=== PATIENT | male | born 1935 | race Asian ===

== ENCOUNTER 2021-09-10 10:15 | Inpatient (IN) | payer BC, MEDICAID, SELFPAY ==
[~2021-09-10] VITALS: Ht 154.9 cm; Wt 56.4 kg
[2021-09-10 10:18] VITALS: BP 112/73
--- NOTE | 2021-09-10 10:52 | NUR ---
20G IV ESTABLISHED IN L AC AND BLOODWORK COLLECTED
--- NOTE | 2021-09-10 10:57 | NUR ---
BLOOD COLLECTED AND WALKED TO LAB. BLOOD HANDED TO SYSTEMS LEAD NIC
--- NOTE | 2021-09-10 11:03 | NUR ---
DR. MITTAL BEDSIDE EVALUATING PT
[2021-09-10] MEDS ORDERED: NACL 0.9% 1,000 ML IV ONE (11:15)
--- NOTE | 2021-09-10 11:24 | NUR ---
X-RAY AT PT BEDSIDE
[2021-09-10 11:31] LABS: ALBUMIN 2.8 g/dL (3.4-5.0); ANION GAP 14.2 (8-16); ASPARTATE AMINOTRANSFERASE 19 U/L (15-37); CARBON DIOXIDE 24.4 mmol/L (21-32); CHLORIDE 100 mmol/L (98-107); CREATININE 1.2 mg/dL (0.6-1.3); GLUCOSE 178 mg/dL (74-106); POTASSIUM 4.6 mmol/L (3.5-5.1); SODIUM SERUM 134 mmol/L (136-145); TOTAL BILIRUBIN 0.6 mg/dL (0.0-1.0); UREA NITROGEN, BLOOD 20 mg/dL (7-18)
[2021-09-10 11:46] LABS: BASOPHILS % (AUTO) 0.5 % (0.0-2.0); EOSINOPHILS # (AUTO) 0.1 K/uL (0-0.4); EOSINOPHILS % (AUTO) 1.3 % (0.0-4.0); HEMATOCRIT 42.1 % (36-52); LYMPHOCYTES # (AUTO) 1.2 K/uL (2.0-11.5); LYMPHOCYTES % (AUTO) 13.2 % (20.5-51.1); MEAN CORPUSCULAR HEMOGLOBIN 32 pg (27-31); MEAN CORPUSCULAR HGB CONC 33 g/dL (33-37); MONOCYTES # (AUTO) 0.7 K/uL (0.8-1.0); MONOCYTES % (AUTO) 7.7 % (1.7-9.3); NEUTROPHILS # (AUTO) 6.9 K/uL (1.8-7.7); NEUTROPHILS % (AUTO) 77.3 % (42.2-75.2); PLATELET COUNT (AUTO) 334 K/uL (140-450); RED BLOOD CELL COUNT(AUTO) 4.34 MIL/uL (4.20-6.10); RED CELL DISTRIBUTION WIDTH 12.7 % (11.6-13.7); WHITE BLOOD COUNT (AUTO) 8.9 K/uL (4.8-10.8)
[2021-09-10] MEDS ORDERED: AZITHROMYCIN 500 MG in DEXTROSE 5% 250 ML IV ONE (12:05)
--- NOTE | 2021-09-10 12:05 | NUR ---
LAB AT PT BEDSIDE
[2021-09-10] MEDS ORDERED: AZITHROMYCIN 500 MG INJ VIAL IV ONE (12:15)
[2021-09-10] MEDS ORDERED: cefTRIAXone 1,000 MG VIAL ONE (12:15)
--- NOTE | 2021-09-10 12:17 | NUR ---
pt taken to ct via geovani
[2021-09-10] MEDS ORDERED: DONE5TAB34 PO (13:15)
[2021-09-10] MEDS ORDERED: SIMV40TA1 PO (13:15)
[2021-09-10] MEDS ORDERED: FOS70 PO (13:15)
[2021-09-10] MEDS ORDERED: CLOP75TA55 PO (13:15)
[2021-09-10] MEDS ORDERED: ICOS0.5C PO (13:15)
[2021-09-10] MEDS ORDERED: METF1TAB1 PO (13:15)
[2021-09-10] MEDS ORDERED: CYCL0.052 OP (13:15)
[2021-09-10] MEDS ORDERED: LOSA100T1 PO (13:15)
--- NOTE | 2021-09-10 13:33 | NUR ---
DAKSHA REIS COLLECTED AND WALKED TO LAB
--- NOTE | 2021-09-10 13:47 | NUR ---
Patient appears to be resting comfortably in bed. Vital Signs within normal limits. Respirations even and unlabored.
[2021-09-10] MEDS ORDERED: ZOLPIDEM 5 MG TAB PO PRN (14:30)
[2021-09-10] MEDS ORDERED: ONDANSETRON 4 MG/2 ML VIAL IVP PRN (14:30)
[2021-09-10] MEDS ORDERED: MORPHINE SULFATE 2 MG/ML SYR IVP PRN (14:30)
[2021-09-10] MEDS ORDERED: LORazepam 2 MG/ML VIAL IM/IVP PRN (14:30)
[2021-09-10] MEDS ORDERED: DOCUSATE SODIUM 100 MG GELCAP PO PRN (14:30)
[2021-09-10] MEDS ORDERED: MAG SULF 2000 MG/WATER PREMIX 50 ML IV PRN (14:30)
[2021-09-10] MEDS ORDERED: ACETAMINOPHEN 325 MG TAB PO PRN (14:30)
[2021-09-10] MEDS ORDERED: SODIUM PHOS / POTASSIUM PHOS 1 PKT PDR PO PRN (14:30)
[2021-09-10] MEDS ORDERED: POTASSIUM CHLORIDE 10 MEQ TABER PO PRN (14:30)
--- NOTE | 2021-09-10 14:32 | NUR ---
Patient will be admitted to care of DR. GUILLEN. Admited to TELE. TELE HOLD IN ED BED 11. Belongings list completed.
--- NOTE | 2021-09-10 14:44 | NUR ---
# 14 FR Urinary catheter inserted utilizing sterile technique. Immediate return of YELLOW ml urine noted. Urine sample collected and sent to lab. Pt tolerated procedure WELL.
[2021-09-10 15:24] LABS: APPEARANCE,URINE CLEAR (CLEAR); BILIRUBIN,URINE NEGATIVE (NEGATIVE); BLOOD, URINE 3+ (NEGATIVE); COLOR,URINE YELLOW (YELLOW); LEUKOCYTE ESTERASE ,URINE NEGATIVE (NEGATIVE); NITRITE, URINE NEGATIVE (NEGATIVE); UGLUCOSE NEGATIVE (NEGATIVE)
[2021-09-10] MEDS: NACL 0.9% 1,000 ML IV SCH (15:24)
[2021-09-10 15:39] LABS: PROTHROMBIN TIME 10.8 secs (10.8-13.4)
--- NOTE | 2021-09-10 15:47 | NUR ---
PT VITAL SIGNS WITHIN NORMAL LIMITS.
[2021-09-10 16:22] LABS: RBC,URINE TOO NUMEROUS TO COUN /HPF (0-5); WBC,URINE NONE SEEN /HPF (0-5)
[2021-09-10 16:27] LABS: PHOSPHORUS 3.3 mg/dL (2.5-4.9); THYROID STIMULATING HORMONE 1.63 uIU/mL (0.34-3.74)
[2021-09-10] MEDS ORDERED: DEXTROSE 50% 50 ML SYR IVP PRN (18:00)
--- NOTE | 2021-09-10 18:02 | NUR ---
Patient appears to be resting comfortably in bed. Vital Signs within normal limits. Respirations even and unlabored.
--- NOTE | 2021-09-10 18:06 | NUR ---
XRAY AT BEDSIDE
[2021-09-10] MEDS ORDERED: AZITHROMYCIN 250 MG TAB PO SCH (18:30)
[2021-09-10] MEDS: TAMSULOSIN 0.4 MG CAP PO SCH (18:35)
--- NOTE | 2021-09-10 19:05 | NUR ---
PT PULLED OUT IV BEDSIDE
--- NOTE | 2021-09-10 19:19 | NUR ---
Pt report given to DUSTIN JONES. Transfer of care at this time.
--- NOTE | 2021-09-10 20:13 | NUR ---
MIKAL PAUL [phone] DAUGHTER IF ANY UPDATE ON PT CONDITION
[2021-09-10] MEDS: BLOOD GLUCOSE MONITORING 1 DEV DEV FS SCH (21:00)
--- NOTE | 2021-09-10 22:01 | NUR ---
Patient will be admitted to care of DR. GUILLEN. Admited to TELEMETRY. Will go to room 122A. Belongings list completed. Report to KRUNAL. PT BROUGHT TO ROOM AT 2140.
[2021-09-10 22:14] VITALS: BP 121/67
[2021-09-10] MEDS: DOCUSATE 100 MG/10 ML UDC PO SCH (22:21)
[2021-09-10] MEDS: DONEPEZIL 10 MG TAB PO SCH (22:21)
[2021-09-10] MEDS: SIMVASTATIN 40 MG TAB PO SCH (22:22)
[2021-09-11] VITALS: BP 126/79
[2021-09-11] MEDS: NACL 0.9% 1,000 ML IV SCH ×2 (00:38→10:33)
[2021-09-11 04:00] VITALS: BP 146/74
[2021-09-11] MEDS: BLOOD GLUCOSE MONITORING 1 DEV DEV FS SCH ×4 (05:51→20:08)
[2021-09-11 07:01] LABS: BASOPHILS % (AUTO) 0.3 % (0.0-2.0); EOSINOPHILS # (AUTO) 0.1 K/uL (0-0.4); EOSINOPHILS % (AUTO) 1.3 % (0.0-4.0); HEMATOCRIT 34.6 % (36-52); HEMOGLOBIN 11.9 g/dL (12.0-18.0); LYMPHOCYTES # (AUTO) 1.2 K/uL (2.0-11.5); LYMPHOCYTES % (AUTO) 16.7 % (20.5-51.1); MEAN CORPUSCULAR HEMOGLOBIN 33 pg (27-31); MEAN CORPUSCULAR HGB CONC 34 g/dL (33-37); MEAN CORPUSCULAR VOLUME 95.7 fL (80-94); MONOCYTES # (AUTO) 0.6 K/uL (0.8-1.0); MONOCYTES % (AUTO) 8.6 % (1.7-9.3); NEUTROPHILS # (AUTO) 5.4 K/uL (1.8-7.7); NEUTROPHILS % (AUTO) 73.1 % (42.2-75.2); PLATELET COUNT (AUTO) 306 K/uL (140-450); RED BLOOD CELL COUNT(AUTO) 3.62 MIL/uL (4.20-6.10); RED CELL DISTRIBUTION WIDTH 12.7 % (11.6-13.7); WHITE BLOOD COUNT (AUTO) 7.4 K/uL (4.8-10.8)
--- NOTE | 2021-09-11 07:15 | NUR ---
REPORT RCVD FROM OUT GOING NOC RN, ALL CARES ASSUMED. PATIENT STABLE IN NO ACUTE DISTRESS AND OR DISCOMFORT.
[2021-09-11 07:16] LABS: ALBUMIN 2.3 g/dL (3.4-5.0); ANION GAP 13.1 (8-16); ASPARTATE AMINOTRANSFERASE 15 U/L (15-37); CARBON DIOXIDE 25.2 mmol/L (21-32); CHLORIDE 108 mmol/L (98-107); GLUCOSE 126 mg/dL (74-106); MAGNESIUM 1.9 mg/dL (1.8-2.4); POTASSIUM 4.3 mmol/L (3.5-5.1); SODIUM SERUM 142 mmol/L (136-145); TOTAL BILIRUBIN 0.6 mg/dL (0.0-1.0); UREA NITROGEN, BLOOD 12 mg/dL (7-18)
--- NOTE | 2021-09-11 07:18 | NUR ---
PATIENT HAS BEEN SCREENED AND CATEGORIZED LOW NUTRITION RISK. PATIENT WILL BE SEEN WITHIN 7 DAYS OF ADMISSION. 09/18/21 TINO THURMAN MS, RDN
[2021-09-11 08:00] VITALS: BP 137/66
[2021-09-11] MEDS: TAMSULOSIN 0.4 MG CAP PO SCH (08:40)
[2021-09-11] MEDS: DOCUSATE 100 MG/10 ML UDC PO SCH ×2 (08:41→20:09)
[2021-09-11] MEDS: LOSARTAN 50 MG TAB PO SCH (08:41)
[2021-09-11] MEDS: CLOPIDOGREL 75 MG TAB PO SCH (08:41)
[2021-09-11] MEDS ORDERED: DONEPEZIL HCL 5 MG PO SCH (09:00)
[2021-09-11] MEDS: AZITHROMYCIN 250 MG TAB PO SCH (09:00)
--- NOTE | 2021-09-11 10:00 | NUR ---
DR. RAMOS MAKING ROUNDS, VERBAL BEDSIDE REPORT GIVEN.
[2021-09-11] MEDS ORDERED: CYCL0.052 OP (10:33)
[2021-09-11] MEDS ORDERED: VITA-16 PO (10:33)
--- NOTE | 2021-09-11 11:33 | NUR ---
BS 135, NO INSULIN NEEDED PER ORDER. PATIENT REMAINS NPO PENDING SWALLOW EVALUATION.
[2021-09-11 12:00] VITALS: BP 129/78
[2021-09-11] MEDS: POLYETHYLENE GLYCOL 17 GM/PKT PO SCH ×2 (14:31→20:09)
[2021-09-11 16:00] VITALS: BP 127/72
--- NOTE | 2021-09-11 16:09 | NUR ---
BS 112, NO INSULIN NEEDED PER ORDER. PATIENT REMAINS NPO PENDING SWALLOW EVALUATION.
[2021-09-11] MEDS: DEXT 5% / NACL 0.9% 500 ML IV SCH (16:41)
--- NOTE | 2021-09-11 18:46 | NUR ---
CLOSING NOTE: REPORT GIVEN TO INCOMING NOC NURSE, ALL CARES ENDORSED.
[2021-09-11 20:00] VITALS: BP 128/52
[2021-09-11] MEDS: DONEPEZIL 10 MG TAB PO SCH (20:09)
[2021-09-11] MEDS: SIMVASTATIN 40 MG TAB PO SCH (20:09)
[2021-09-12] VITALS: BP 122/58
[2021-09-12] MEDS: DEXT 5% / NACL 0.9% 500 ML IV SCH ×3 (02:40→22:57)
[2021-09-12 04:00] VITALS: BP 141/68
[2021-09-12 06:04] LABS: BASOPHILS % (AUTO) 0.4 % (0.0-2.0); EOSINOPHILS # (AUTO) 0.2 K/uL (0-0.4); HEMATOCRIT 34.8 % (36-52); HEMOGLOBIN 11.9 g/dL (12.0-18.0); LYMPHOCYTES # (AUTO) 1.1 K/uL (2.0-11.5); LYMPHOCYTES % (AUTO) 17.1 % (20.5-51.1); MEAN CORPUSCULAR HEMOGLOBIN 33 pg (27-31); MEAN CORPUSCULAR HGB CONC 34 g/dL (33-37); MEAN CORPUSCULAR VOLUME 95.1 fL (80-94); MONOCYTES # (AUTO) 0.6 K/uL (0.8-1.0); MONOCYTES % (AUTO) 9.2 % (1.7-9.3); NEUTROPHILS # (AUTO) 4.4 K/uL (1.8-7.7); NEUTROPHILS % (AUTO) 70.3 % (42.2-75.2); PLATELET COUNT (AUTO) 320 K/uL (140-450); RED BLOOD CELL COUNT(AUTO) 3.66 MIL/uL (4.20-6.10); RED CELL DISTRIBUTION WIDTH 12.6 % (11.6-13.7); WHITE BLOOD COUNT (AUTO) 6.3 K/uL (4.8-10.8)
[2021-09-12] MEDS: BLOOD GLUCOSE MONITORING 1 DEV DEV FS SCH ×4 (06:13→20:58)
[2021-09-12 06:17] LABS: ALBUMIN 2.3 g/dL (3.4-5.0); ANION GAP 11.4 (8-16); ASPARTATE AMINOTRANSFERASE 17 U/L (15-37); CARBON DIOXIDE 26.4 mmol/L (21-32); CHLORIDE 107 mmol/L (98-107); CREATININE 0.9 mg/dL (0.6-1.3); GLUCOSE 138 mg/dL (74-106); POTASSIUM 3.8 mmol/L (3.5-5.1); SODIUM SERUM 141 mmol/L (136-145); TOTAL BILIRUBIN 0.4 mg/dL (0.0-1.0); UREA NITROGEN, BLOOD 9 mg/dL (7-18)
[2021-09-12 08:17] VITALS: BP 132/58
[2021-09-12] MEDS: POLYETHYLENE GLYCOL 17 GM/PKT PO SCH ×2 (09:00→20:58)
[2021-09-12] MEDS: AZITHROMYCIN 250 MG TAB PO SCH (09:00)
[2021-09-12] MEDS: DOCUSATE 100 MG/10 ML UDC PO SCH ×2 (09:00→20:50)
[2021-09-12] MEDS: LOSARTAN 50 MG TAB PO SCH (09:00)
[2021-09-12] MEDS: TAMSULOSIN 0.4 MG CAP PO SCH (09:00)
[2021-09-12] MEDS: CLOPIDOGREL 75 MG TAB PO SCH (09:00)
--- NOTE | 2021-09-12 09:02 | NUR ---
PT IN STABLE CONDITION. INFORMED MD PT IS NPO AND RECEIVED ORDERS FOR BEDSIDE SWALLOW EVAL. PT ABLE TO TOLERATE WATER AND APPLE SAUCE. PLACED ORDERS FOR PUREED DIET. PT TOLERATED AM MEDICATIONS.
[2021-09-12] MEDS: INSULIN LISPRO SLIDING SCALE 100 UNITS/ML VIAL SUBQ PRN ×2 (11:37→16:28)
[2021-09-12 12:00] VITALS: BP 129/58
[2021-09-12 16:00] VITALS: BP 129/58
--- NOTE | 2021-09-12 19:15 | NUR ---
RECEIVED REPORT FROM MORNING SHIFT NURSE. PATIENT RESTING ON BED, BREATHING EVEN AND UNLABORED ON ROOM AIR. SAFETY MEASURES IMPLEMENTED WITH SIDE RAILS UP X2, CALL LIGHT WITHIN REACH. NO COMPLAINTS AT THIS TIME. WILL CONTINUE TO MONITOR PATIENT.
[2021-09-12 20:00] VITALS: BP 138/54
[2021-09-12] MEDS: SIMVASTATIN 40 MG TAB PO SCH (20:50)
[2021-09-12] MEDS: DONEPEZIL 10 MG TAB PO SCH (20:57)
[2021-09-13] VITALS: BP 141/56
--- NOTE | 2021-09-13 | NUR ---
PATIENT RESTING ON BED. VSS. NO UNTOWARD S/SX OBSERVED. WILL CONTINUE TO MONITOR PATIENT.
[2021-09-13 04:00] VITALS: BP 150/78
--- NOTE | 2021-09-13 05:30 | NUR ---
PATIENT HAD A BM, MORNING CARE AND PERICARE RENDERED. NO COMPLAINTS AT THIS TIME. BED LOCKED AT LOWEST WITH SIDE RAILS UP X 2 AND CALL LIGHT WITHIN REACH. WILL CONTINUE TO MONITOR PATIENT.
[2021-09-13 05:59] LABS: ALBUMIN 2.3 g/dL (3.4-5.0); ANION GAP 9.7 (8-16); ASPARTATE AMINOTRANSFERASE 23 U/L (15-37); CARBON DIOXIDE 26.9 mmol/L (21-32); CHLORIDE 107 mmol/L (98-107); CREATININE 0.9 mg/dL (0.6-1.3); GLUCOSE 141 mg/dL (74-106); MAGNESIUM 2.1 mg/dL (1.8-2.4); POTASSIUM 3.6 mmol/L (3.5-5.1); SODIUM SERUM 140 mmol/L (136-145); TOTAL BILIRUBIN 0.3 mg/dL (0.0-1.0); UREA NITROGEN, BLOOD 7 mg/dL (7-18)
[2021-09-13 06:09] LABS: BASOPHILS % (AUTO) 0.5 % (0.0-2.0); EOSINOPHILS # (AUTO) 0.2 K/uL (0-0.4); EOSINOPHILS % (AUTO) 2.4 % (0.0-4.0); HEMATOCRIT 34.8 % (36-52); HEMOGLOBIN 11.9 g/dL (12.0-18.0); LYMPHOCYTES # (AUTO) 1.4 K/uL (2.0-11.5); LYMPHOCYTES % (AUTO) 18.3 % (20.5-51.1); MEAN CORPUSCULAR HEMOGLOBIN 33 pg (27-31); MEAN CORPUSCULAR HGB CONC 34 g/dL (33-37); MEAN CORPUSCULAR VOLUME 95.6 fL (80-94); MONOCYTES # (AUTO) 0.6 K/uL (0.8-1.0); MONOCYTES % (AUTO) 8.4 % (1.7-9.3); NEUTROPHILS # (AUTO) 5.3 K/uL (1.8-7.7); NEUTROPHILS % (AUTO) 70.4 % (42.2-75.2); PLATELET COUNT (AUTO) 357 K/uL (140-450); RED BLOOD CELL COUNT(AUTO) 3.64 MIL/uL (4.20-6.10); RED CELL DISTRIBUTION WIDTH 12.7 % (11.6-13.7); WHITE BLOOD COUNT (AUTO) 7.6 K/uL (4.8-10.8)
[2021-09-13] MEDS: BLOOD GLUCOSE MONITORING 1 DEV DEV FS SCH ×4 (06:48→20:31)
--- NOTE | 2021-09-13 07:19 | NUR ---
REPORT GIVEN TO MORNING NURSE. PATIENT ASLEEP ON BED, STABLE.
[2021-09-13 08:04] VITALS: BP 142/58
--- NOTE | 2021-09-13 08:47 | NUR ---
PT. WITH LOW ALEX SCALE AT MODERATE TO HIGH RISK, CONTINUE TO FOLLOW PRESSURE INJURY PREVENTION INTERVENTIONS. -POSITIONING: TURN AND REPOSITION PATIENT Q 2H OR SOONER USE PILLOWS TO KEEP BONY PROMINENCES FROM DIRECT CONTACT WITH SURFACES USE REPOSITIONING WEDGES TO PROVIDE 30-DEGREE ANGLE FOR SIDE LYING POSITIONS OFFLOADING OR FOAM DRESSING TO ALL TUBING TO PREVENT MEDICAL DEVICES RELATED PRESSURE INJURY -RE-EVALUATING AND MANAGING INCONTINENCE MONITOR SKIN CONDITION DURING POSITION CHANGE DO NOT MASSAGE REDNESS, BONY PROMINENCES, DO NOT USE DONUT-TYPE DEVICES FREQUENT KIRSTIN-CARE AND PROVIDE BARRIER CREAMS PRN IF SOILING MOISTURE CONTROL BY OFFER BED STEPHENSON/URINAL /ABSORBENT PAD TO WICK AND HOLD MOISTURE. KEEP SKIN DRY AND PROTECT FROM FRICTION -MANAGE FRICTION/SHEAR/MOBILITY KEEP HOB AT THE LOWEST LEVEL OF ELEVATION NO MORE THAN 30 DEGREE UNLESS OTHERWISE CONTRAINDICATED USE LIFT SHEET OR TRANSFER DEVICE TO MOVE PATIENT AND PREVENT LATERAL SHEER. PROTECT HEELS, ELBOWS BONY PROMINENCES WITH SKIN BERRIES OR FOAM DRESSING IF EXPOSED TO FRICTION OFFLOAD BILATERAL HEELS BY PLACING PILLOWS UNDER CALVES AT ALL TIMES, UNLESS OTHERWISE CONTRAINDICATED -PRESSURE REDISTRIBUTION SURFACE THERAPY -NUTRITION: PLEASE FOLLOW RD RECOMMENDATIONS AND OFFER NUTRITION SUPPLEMENTS IF ORDERED. PLEASE CONTACT WOUND CARE NURSE FOR ANY QUESTION AND CHANGE OF WOUND CONDITION.
[2021-09-13] MEDS: TAMSULOSIN 0.4 MG CAP PO SCH (08:56)
[2021-09-13] MEDS: DEXT 5% / NACL 0.9% 500 ML IV SCH (08:56)
[2021-09-13] MEDS: AZITHROMYCIN 250 MG TAB PO SCH (08:57)
[2021-09-13] MEDS: POLYETHYLENE GLYCOL 17 GM/PKT PO SCH ×2 (08:57→20:35)
[2021-09-13] MEDS: LOSARTAN 50 MG TAB PO SCH (08:57)
[2021-09-13] MEDS: CLOPIDOGREL 75 MG TAB PO SCH (08:57)
[2021-09-13] MEDS: DOCUSATE 100 MG/10 ML UDC PO SCH ×2 (08:57→20:35)
[2021-09-13] MEDS ORDERED: ALBUTEROL SULFATE/IPRATROPIU 3 ML SOL IH PRN (09:05)
--- NOTE | 2021-09-13 09:58 | NUR ---
PT IN STABLE CONDITION, VSS, NAD NOTED. PT TOLERATED AM MEDICATIONS. PT PENDING SWALLOW EVAL AND U/S OF CHEST DUE TO PLEURAL EFFUSION. SAFETY MEASURES IN PLACE.
[2021-09-13] MEDS: INSULIN LISPRO SLIDING SCALE 100 UNITS/ML VIAL SUBQ PRN ×2 (11:27→20:34)
[2021-09-13] MEDS: ALBUTEROL SULFATE/IPRATROPIU 3 ML SOL IH SCH ×2 (11:45→20:30)
[2021-09-13 12:00] VITALS: BP 146/64
--- NOTE | 2021-09-13 13:39 | NUR ---
DC PLANNING: THE PATIENT ADMITTED THROUGH THE ER FROM HOME WITH C/O CHEST PAIN, DECREASED ABILITY TO TRANSFER AND STIFFNESS. CXR SHOWS LLL CONSOLIDATION AND TRACE PLEURAL EFFUSION, ABNORMAL EKG, BNP 131. CM SPOKE WITH THE PATIENTS DAUGHTER MIKAL AT BEDSIDE AND CONFIRMED THE PATIENTS ADDRESS AND PHONE NUMBER. HE LIVES WITH HIS DAUGHTER, SPOUSE AND SON IN [place] IN A SINGLE STORY HOUSE. HE IS NORMALLY WC BOUND BUT IS ABLE TO STAND AND PIVOT BUT HAS BEEN WEAKER LATELY AND UNABLE TO DO THIS. HE IS TOTAL CARE WITH ADL'S BUT IS ABLE TO FEED HIMSELF. HIS PO INTAKE HAS ALSO DECREASED RECENTLY AND HIS DAUGHTER HAS BEEN SPEAKING WITH THE [facility] LIAISON AT [facility]. THE FAMILY WOULD LIKE HIM PLACED AT [facility] AND HE HAS BEEN ACCEPTED TO ROOM 38C WITH DR DOVE TO FOLLOW. CM NOTIFIED THE PATIENTS DAUGHTER OF HIS ACCEPTANCE TO [facility]. PATIENT TO DC TO [facility] WHEN CLINICALLY STABLE, DOLORES WILL FOLLOW. Addendum: 09/13/21 at 1345 by Aracelis Kelley CM Amended: Links added. Addendum: 09/14/21 at 1025 by Aracelis Kelley CM DC PLANNING: CM SPOKE WITH DOLORES BULLOCK AT [facility], AUTH GIVEN TO [facility] FOR PLACEMENT WHEN PATIENT IS STABLE FOR DISCHARGE. CM WILL FOLLOW. Addendum: 09/14/21 at 1503 by Aracelis Kelley CM DC PLANNING: PATIENT TRANSFERRED TO ICU FOR EPISODES OF A FIB WITH RVR, STARTED ON AMIODARONE GTT, PATIENT CONVERTED TO SR, CARDIOLOGY ROUNDED AND CHANGED AMIODARONE FROM IV TO PO, PATIENT ALSO STARTED ON ELIQIS, IS TO CONTINUE STATINS, WILL ALSO HAVE AN ECHO. WILL BE DOWNGRADED TO TELEMETRY AND WILL DC TO [facility] WHEN CLINICALLY STABLE. CM WILL FOLLOW. Addendum: 09/15/21 at 1107 by Aracelis Kelley CM DC PLANNING: PATIENT TO DC TO [facility] TODAY, NUMBER TO CALL REPORT IS [phone], ROOM 38C, DR DOVE TO FOLLOW. PATIENT TO TRANSPORT WITH TELE MONITORING WITH [facility] ([phone]), CM IS WAITING FOR AUTHORIZATION FROM KOBE AT [facility] TO ARRANGE, HARD COPY WILL ALSO BE FAXED TO PROVIDE TO [facility]. PATIENT WILL HAVE A MIDLINE PLACED FIRST TO CONTINUE IV ABX AT [facility]. CM WILL FOLLOW. Addendum: 09/15/21 at 1112 by Aracelis Kelley CM DC PLANNING: DOLORES SPOKE WITH THE PATIENTS DAUGHTER MIKAL TO LET HER KNOW THAT HER FATHER WILL DC TO [facility] TODAY. ENDORSED THAT DC IS PENDING MIDLIFE PLACEMENT AND THAT HE WILL TRANSPORT VIA AMBULANCE WITH MONITORING. MIKAL IS IN AGREEMENT WITH THE DC PLAN, CM WILL FOLLOW. Addendum: 09/15/21 at 1138 by Aracelis Kelley CM DC PLANNING: PATIENT PLACED ON WILL CALL WITH [facility] ([phone]) S LEVEL OF CARE, UNABLE TO TRANSPORT WITH MONITORING HE WILL NOT CONTINUE MONITORING AT [facility]. CM WILL FOLLOW.
--- NOTE | 2021-09-13 13:39 | NUR ---
09/13/21 RD INITIAL ASSESSMENT COMPLETED PLEASE REFER TO NUTRITION ASSESSMENT UNDER CARE ACTIVITY FOR ESTIMATED NUTRITIONAL NEEDS. 1. WHEN/IF MEDICALLY APPROPRIATE TO RESUME ORAL INTAKE, RECOMMEND CCHO 60 GM DIET WITH TEXTURE MODIFICATION PER SPEECH THERAPIST 2. IF PT FAILS SWALLOW EVAL AND REQUIRES NUTRITION SUPPORT, RECOMMEND GLUCERNA 1.2 WITH A GOAL RATE OF 55 ML/HR OR PER MD 3. RD TO FOLLOW-UP 2-3 DAYS, HIGH RISK NATALIE BROWN RD
--- NOTE | 2021-09-13 15:39 | NUR ---
PT SEEN BY MD KEON AWARE OF RECOMMENDED DIET. ORDER PLACED.
[2021-09-13 16:00] VITALS: BP 139/62
--- NOTE | 2021-09-13 18:57 | NUR ---
PT IN STABLE CONDITION, VSS, NAD NOTED. PT TOLERATING DIET. SAFETY MEASURES IN PLACE. WILL ENDORSE TO GEOLOGICAL ENGINEER RN.
--- NOTE | 2021-09-13 19:11 | NUR ---
ENDORSED CARE TO EVP MANAGING DIRECTOR RN.
--- NOTE | 2021-09-13 19:20 | NUR ---
RECEIVED REPORT FROM MORNING NURSE. PATIENT RESTING ON BED. IV SITE GOT PULLED OUT. RE -INSERTED A NEW IV ON LEFT WRIST G22, SECURED AND FLUSHES WELL. SAFETY MEASURES IMPLEMENTED, CALL LIGHT WITHIN REACH. WILL CONTINUE TO MONITOR PATIENT
[2021-09-13 20:00] VITALS: BP 132/62
--- NOTE | 2021-09-13 20:30 | NUR ---
PT LAYING IN BED HOB ELEVATED, BS CLEAR AT APICES DIMINISHED AT BASES, ADMINISTERED HHN TX VIA SVN W/MASK, PT TOLERATED WELL. NO ADVERSE EFFECTS TO TX AND NO SIGNS OF RESPIRATORY DISTRESS NOTED AT THIS TIME. PT IS CURRENTLY SATING 97% ON RA WILL CONTINUE TO MONITOR.
[2021-09-13] MEDS: SIMVASTATIN 40 MG TAB PO SCH (20:36)
[2021-09-13] MEDS: DONEPEZIL 10 MG TAB PO SCH (20:36)
[2021-09-13] MEDS: guaiFENesin 600 MG TABER PO SCH (20:55)
--- NOTE | 2021-09-13 21:50 | NUR ---
REPORTED TO ROOM TO ASSES PT. HE IS AWAKE AND COMMUNICATING WITH DAUGHTER OVER HIS CELL PHONE THAT HE CANNOT BREATH. PLACED THE PT ON 4LPM NC SATING 93% WITH NO IMPROVEMENT IN CONDITION. HE BEGAN TO ACT CONFUSED AND APPARENT CHANGE IN CONDITION NOTED , RESPIRATIONS BECAME LABORED, HE BECAME TACHYPNEIC AND TACHYCARDIC. ABG WAS DONE @ 21:21 TO ASSESS OXYGENATION AND VENTILATION STATUS. RESULTS REVEALED: PH: 7.429 PCO2: 33.9 PO2: 69.2 HCO3: 21.9 BE: -1.7. INCREASED NC O2 TO 8LPM. WILL CONTINUE TO MONITOR.
--- NOTE | 2021-09-13 21:54 | NUR ---
2047: PATIENT JUST HAD IS BREATHING TREATMENT, O2 SAT AT 94%. PATIENT COMPLAINING OF NOT BEING ABLE TO BREATHE, MOANING AND HOLDING HIS CHEST. REFERRED TO RT FOR ADDITIONAL ASSESSMENT. WELT EDGE ROUNDER MADE AWARE. PATIENT PLACED ON OXYGEN OF 2 L/NC AND ABG DONE BY RT. PATIENT STILL COMPLAINING. DAUGHTER UPDATED OF PATIENT CONDITION. ABG RESULT CAME OUT AND TURNS OUT NORMAL. RT ADJUSTED OXYGEN TO 8L/NC. PATIENT GIVEN ATIVAN FOR ANXIETY. DAUGHTER UPDATED.
--- NOTE | 2021-09-13 22:05 | NUR ---
DR GRIFFITH MADE AWARE OF PATIENT CONDITION. LABS, CTA CHEST AND EKG ORDERS RECEIVED.TRANSFER TO ICU ORDER RECEIVED. HONEY EXTRACTOR AWARE, PATIENT WILL BE GOING TO ICU BED 5. CALLED DAUGHTER AND GOT A TELEPHONE CONSENT FOR CTA CHEST, UPDATED HER OF PATIENT'S TRANSFER. INSERTED NEW IV SITE ON LEF G 20 FOR CONTRAST ACCESS.
[2021-09-13] MEDS ORDERED: AMIODARONE 150 MG in DEXTROSE 5% 100 ML IV SCH (22:40)
[2021-09-13] MEDS ORDERED: AMIODARONE 450 MG in DEXTROSE 5% 250 ML IV SCH (22:40)
[2021-09-13] MEDS ORDERED: AMIODARONE 150 MG/3 ML VIAL IV ONE (23:11)
--- NOTE | 2021-09-13 23:20 | NUR ---
PATIENT ACCOMPANIED TO RADIOLOGY DEPT FOR CTA CHEST. PATIENT STABLE ON TRANSFER, CONNECTED TO HEART MONITOR. PATIENT TRANSFERRED TO ICU BED 5 AFTER CTA. REPORT GIVEN TO DUSTIN JACOBSON. PATIENT STABLE UPON TRANSFER.
--- NOTE | 2021-09-13 23:20 | NUR ---
REPORT RECEIVED FROM IRENE CHAN. PATIENT TRANSPORTED TO UNIT VIA GURNEY. PATIENT APPEARS TO BE SHORT OF BREATH WITH O2 SATURATION AT 96. CURRENTLY SINUS TACHYCARDIA ON MONITOR WITH HR AT 133 BPM. AMIODARONE BOLUS LOADING DOSE STARTED PER PROTOCOL. WILL CONTINUE TO MONITOR.
--- NOTE | 2021-09-13 23:31 | NUR ---
AMIODARONE MAINTENANCE DOSE BEGAN. PATIENT HR [address] ON MONITOR. WILL CONTINUE TO MONITOR.
[2021-09-13] MEDS ORDERED: AMIODARONE 450 MG/9 ML VIAL IV ONE (23:37)
[2021-09-14] VITALS (11 sets, daily range): BP systolic 96–152; BP diastolic 53–85
--- NOTE | 2021-09-14 04:00 | NUR ---
PERICARE PROVIDED. PATIENT REPOSITIONED. WILL CONTINUE TO MONITOR.
--- NOTE | 2021-09-14 04:24 | NUR ---
PATIENT LYING IN BED GRIMACING AND APPEARS TO BE IN PAIN. PRN MORPHINE PROVIDED.
--- NOTE | 2021-09-14 05:12 | NUR ---
AMIODARONE DRIP TITRATED TO 0.5 MG/MIN PER PROTOCOL. PT BP 117/56 HR72 SPO2 99 RR 16. WILL CONTINUE TO MONITOR.
[2021-09-14] MEDS ORDERED: AMIODARONE 450 MG/9 ML VIAL IV ONE (05:32)
[2021-09-14 06:15] LABS: ALBUMIN 2.5 g/dL (3.4-5.0); ANION GAP 10.4 (8-16); ASPARTATE AMINOTRANSFERASE 29 U/L (15-37); CARBON DIOXIDE 27.3 mmol/L (21-32); CHLORIDE 103 mmol/L (98-107); GLUCOSE 256 mg/dL (74-106); MAGNESIUM 1.9 mg/dL (1.8-2.4); POTASSIUM 3.7 mmol/L (3.5-5.1); SODIUM SERUM 137 mmol/L (136-145); TOTAL BILIRUBIN 0.9 mg/dL (0.0-1.0); UREA NITROGEN, BLOOD 10 mg/dL (7-18)
[2021-09-14 06:57] LABS: BASOPHILS % (AUTO) 0.1 % (0.0-2.0); HEMATOCRIT 38.7 % (36-52); HEMOGLOBIN 12.7 g/dL (12.0-18.0); LYMPHOCYTES # (AUTO) 0.5 K/uL (2.0-11.5); MEAN CORPUSCULAR HEMOGLOBIN 32 pg (27-31); MEAN CORPUSCULAR HGB CONC 33 g/dL (33-37); MEAN CORPUSCULAR VOLUME 96.7 fL (80-94); MONOCYTES # (AUTO) 0.5 K/uL (0.8-1.0); MONOCYTES % (AUTO) 3.3 % (1.7-9.3); NEUTROPHILS # (AUTO) 15.1 K/uL (1.8-7.7); NEUTROPHILS % (AUTO) 93.6 % (42.2-75.2); PLATELET COUNT (AUTO) 391 K/uL (140-450); RED CELL DISTRIBUTION WIDTH 12.8 % (11.6-13.7); WHITE BLOOD COUNT (AUTO) 16.1 K/uL (4.8-10.8)
--- NOTE | 2021-09-14 07:19 | NUR ---
REPORT ENDORSED TO DUSTIN PEREZ FOR CONTINUITY OF CARE.
--- NOTE | 2021-09-14 07:20 | NUR ---
RECEIVED REPORT FROM BANK APPRAISER NURSE. PT IS RESTING IN BED AND IN NO SIGN OF DISTRESS. PT IS AWAKE AND HAS A HISTORY OF DEMENTIA. PT HAS A LEFT FA 22 G IV RUNNING AMIODARONE AT 0.5MG/MIN AND A LEFT WRIST 20 G IV WITH A SALINE LOCK. PT IS ON NC RUNNING 2 L/MIN. PT IS ON MECHANICAL SOFT DIET AND HAS BEEN CONSTIPATED FOR SEVERAL DAYS. SKIN IS INTACT AND DRY. ALL SAFETY PRECAUTIONS ARE IN PLACE. WILL CONTINUE TO MONITOR.
[2021-09-14] MEDS: ALBUTEROL SULFATE/IPRATROPIU 3 ML SOL IH SCH ×3 (07:21→18:00)
[2021-09-14] MEDS: BLOOD GLUCOSE MONITORING 1 DEV DEV FS SCH ×4 (08:30→22:00)
[2021-09-14] MEDS: DOCUSATE 100 MG/10 ML UDC PO SCH ×2 (08:53→22:19)
[2021-09-14] MEDS: TAMSULOSIN 0.4 MG CAP PO SCH (08:53)
[2021-09-14] MEDS: LOSARTAN 50 MG TAB PO SCH (08:54)
[2021-09-14] MEDS: guaiFENesin 600 MG TABER PO SCH ×2 (08:54→22:22)
[2021-09-14] MEDS: CLOPIDOGREL 75 MG TAB PO SCH (08:54)
[2021-09-14] MEDS: POLYETHYLENE GLYCOL 17 GM/PKT PO SCH ×2 (08:54→22:35)
[2021-09-14] MEDS: INSULIN LISPRO SLIDING SCALE 100 UNITS/ML VIAL SUBQ PRN ×4 (08:54→22:17)
[2021-09-14] MEDS ORDERED: FUROSEMIDE 40 MG/4 ML VIAL IVP SCH ×2 (09:00→09:15)
--- NOTE | 2021-09-14 10:00 | NUR ---
DR. GRIFFITH AT BEDSIDE ASSESSING PT AND TALKING TO FAMILY.
[2021-09-14] MEDS ORDERED: DICYCLOMINE HCL LIQUID 10 MG/5 ML UDC PO ONE (10:15)
[2021-09-14] MEDS: FUROSEMIDE 40 MG/4 ML VIAL IVP SCH (10:20)
--- NOTE | 2021-09-14 10:30 | NUR ---
PER DR. GRIFFITH ORDERS, PT IS TO RECEIVE LASIX DAILY. PT ALREADY RECEIVED LASIX AND WILL CONTINUE TOMORROW WITH DAILY DOSE.
[2021-09-14] MEDS ORDERED: ALUMINUM HYD/MAG/SIMETHICONE 30 ML UDC PO SCH (11:00)
[2021-09-14] MEDS ORDERED: DICYCLOMINE HCL LIQUID 10 MG/5 ML UDC PO SCH (11:00)
--- NOTE | 2021-09-14 11:00 | NUR ---
PT IS SLEEPING AND IN NO SIGN OF DISTRESS. WILL CONTINUE TO MONITOR.
--- NOTE | 2021-09-14 11:03 | NUR ---
US AT BEDSIDE.
[2021-09-14] MEDS ORDERED: LIDOCAINE 5% 1 EA PATCH TP SCH (11:30)
--- NOTE | 2021-09-14 11:50 | NUR ---
LABORATORY AT BEDSIDE.
--- NOTE | 2021-09-14 11:55 | NUR ---
RADIOLOGY AT BEDSIDE.
--- NOTE | 2021-09-14 12:00 | NUR ---
LIDOCAINE PATCH NOT ADMINISTERED PER RESIDENT REMA DUE TO NO SPECIFIED LOCATION. CALLED DR. GRIFFITH VIA PHONE FOR ORDER CLARIFICATION AND NO CALL BACK AT THIS MOMENT. WILL CALL BACK AGAIN.
[2021-09-14 12:38] LABS: AMYLASE 30 U/L (25-115); LIPASE 88 U/L (73-393)
--- NOTE | 2021-09-14 12:50 | NUR ---
PT STARTED TO COMPLAIN ABOUT ABDOMINAL PAIN AND PER DR. GRIFFITH ORDERS MEDICATION WAS ADMINISTERED. WILL CONTINUE TO ASSESS.
--- NOTE | 2021-09-14 12:58 | NUR ---
ECO ON BEDSIDE.
--- NOTE | 2021-09-14 14:40 | NUR ---
DR. WILSON AT BEDSIDE AND ASSESSING PT.
[2021-09-14] MEDS: AMIODARONE 200 MG TAB PO SCH ×2 (15:30→22:23)
--- NOTE | 2021-09-14 15:30 | NUR ---
DR. RAMOS AT BEDSIDE AND ASSESSING PT.
--- NOTE | 2021-09-14 15:45 | NUR ---
PER DR. GRIFFITH ORDERS VIA PHONE, PLACE CONSULT ODER FOR DR. MUSHTAQ BRANCH NEPHRO, PLACE LIDOCAINE PATCH IF PT HAS ABDOMINAL PAIN, AND PLACE ORDER FOR TELE. WILL CONTINUE TO MONITOR.
[2021-09-14] MEDS ORDERED: LIDOCAINE 5% 1 EA PATCH TP PRN (17:35)
--- NOTE | 2021-09-14 19:26 | NUR ---
ENDORSED CARE TO HEAT TREAT INSPECTOR NURSE FOR CONTINUITY OF CARE.
--- NOTE | 2021-09-14 19:30 | NUR ---
RECEIVED PATIENT ON BED; AWAKE, ALERT, FOLLOWS COMMANDS. BREATHING EVEN AND UNLABORED ON 2 LITERS /. CARDIACSCOPE SHOWS ON SINUS RHYTHM HR 79/MIN, NO ARRHYTHMIAS SEEN. ABDOMEN IS SOFT; NON TENDER,ACTIVE BOWEL SOUNDS.IVF IN IN PROGRESS IS NORMAL SALINE KVO VIA G22 IV CANNULA ON LFA; INTACT.
--- NOTE | 2021-09-14 19:45 | NUR ---
HAD BM TO MODERATE AMOUNT OF SOFT,LOOSE YELLOW STOOL AND MIXED WITH HIS URINE; KEPT CLEAN, DRY AND COMFORTABLE. OFFERED PT TO INSERT A CONDOM CATH BUT HE REFUSED.
--- NOTE | 2021-09-14 20:10 | NUR ---
TRANSFERRED TO TELE ROOM 108B PER BED IN FAIR CONDITION; ENDORSED TO NURSE SRINATH.
--- NOTE | 2021-09-14 20:30 | NUR ---
PATIENT'S DAUGHTER MIKAL WAS INFORMED BY TELEPHONE OF PATIENT'S TRANSFER TO TELEMETRY UNIT.
--- NOTE | 2021-09-14 20:40 | NUR ---
Pt transferred from ICU to room 108-B, awake, no s/s of acute distress, on 02 2 L/min via nc. NSR on telemetry,V?s wnl for pt at this time. Pt denies CP . Continue to monitor and meet needs.
[2021-09-14] MEDS: INSULIN LANTUS 100 UNITS/ML 10 ML VIAL SUBQ SCH (22:15)
[2021-09-14] MEDS: SIMVASTATIN 40 MG TAB PO SCH (22:21)
[2021-09-14] MEDS: DONEPEZIL 10 MG TAB PO SCH (22:23)
[2021-09-14] MEDS: PIPERACILLIN/TAZOBACTAM 3.375 GM in DEXTROSE 5% 50 ML IV SCH (22:25)
[2021-09-14] MEDS: APIXABAN 2.5 MG TAB PO SCH (22:30)
[2021-09-15] VITALS (9 sets, daily range): BP systolic 99–110; BP diastolic 52–62
[2021-09-15] MEDS: PIPERACILLIN/TAZOBACTAM 3.375 GM in DEXTROSE 5% 50 ML IV SCH ×3 (05:15→20:43)
--- NOTE | 2021-09-15 05:59 | NUR ---
Pt a/o x2 , calm and cooperative. Denies CP, no SOB/congestion noted during this shift, on 02 2 L/min via nc. Atb therapy admin as ordered. no s/s of a/r . afebrile. cont. to monitor.
[2021-09-15 06:10] LABS: BASOPHILS % (AUTO) 0.1 % (0.0-2.0); EOSINOPHILS % (AUTO) 0.3 % (0.0-4.0); HEMATOCRIT 33.8 % (36-52); HEMOGLOBIN 11.5 g/dL (12.0-18.0); LYMPHOCYTES % (AUTO) 6.7 % (20.5-51.1); MEAN CORPUSCULAR HEMOGLOBIN 32 pg (27-31); MEAN CORPUSCULAR HGB CONC 34 g/dL (33-37); MEAN CORPUSCULAR VOLUME 94.1 fL (80-94); MONOCYTES # (AUTO) 0.8 K/uL (0.8-1.0); MONOCYTES % (AUTO) 5.4 % (1.7-9.3); NEUTROPHILS # (AUTO) 13.1 K/uL (1.8-7.7); NEUTROPHILS % (AUTO) 87.5 % (42.2-75.2); PLATELET COUNT (AUTO) 371 K/uL (140-450); RED BLOOD CELL COUNT(AUTO) 3.59 MIL/uL (4.20-6.10); RED CELL DISTRIBUTION WIDTH 12.9 % (11.6-13.7)
[2021-09-15] MEDS: ALBUTEROL SULFATE/IPRATROPIU 3 ML SOL IH SCH ×3 (07:04→19:21)
[2021-09-15] MEDS: BLOOD GLUCOSE MONITORING 1 DEV DEV FS SCH ×4 (07:30→20:51)
[2021-09-15 07:34] LABS: ALBUMIN 2.3 g/dL (3.4-5.0); ANION GAP 11.6 (8-16); ASPARTATE AMINOTRANSFERASE 21 U/L (15-37); CHLORIDE 104 mmol/L (98-107); CREATININE 1.1 mg/dL (0.6-1.3); MAGNESIUM 2.2 mg/dL (1.8-2.4); POTASSIUM 3.6 mmol/L (3.5-5.1); SODIUM SERUM 139 mmol/L (136-145); TOTAL BILIRUBIN 0.4 mg/dL (0.0-1.0); UREA NITROGEN, BLOOD 16 mg/dL (7-18)
[2021-09-15 07:44] LABS: GLUCOSE 124 mg/dL (74-106)
[2021-09-15] MEDS: AMIODARONE 200 MG TAB PO SCH ×2 (08:50→20:44)
[2021-09-15] MEDS: POLYETHYLENE GLYCOL 17 GM/PKT PO SCH ×2 (08:51→20:43)
[2021-09-15] MEDS: guaiFENesin 600 MG TABER PO SCH ×2 (08:51→20:43)
[2021-09-15] MEDS: TAMSULOSIN 0.4 MG CAP PO SCH (08:51)
[2021-09-15] MEDS: DOCUSATE 100 MG/10 ML UDC PO SCH ×2 (08:51→20:43)
[2021-09-15] MEDS: APIXABAN 2.5 MG TAB PO SCH ×2 (08:52→20:50)
[2021-09-15] MEDS: INSULIN LANTUS 100 UNITS/ML 10 ML VIAL SUBQ SCH (08:54)
[2021-09-15] MEDS: FUROSEMIDE 40 MG/4 ML VIAL IVP SCH (08:57)
[2021-09-15] MEDS: LOSARTAN 50 MG TAB PO SCH (09:00)
[2021-09-15] MEDS ORDERED: TAMS0.4C96 PO (10:44)
[2021-09-15] MEDS ORDERED: AMIO200T10 PO ×2 (10:44→10:48)
[2021-09-15] MEDS ORDERED: ZOS3.375PM IV (10:44)
[2021-09-15] MEDS ORDERED: LANTUS SUBQ (10:44)
[2021-09-15] MEDS ORDERED: APIX2.5 PO (10:44)
[2021-09-15] MEDS ORDERED: DONE5TAB34 PO (10:44)
--- NOTE | 2021-09-15 11:40 | NUR ---
RECEIVED CONSENT FOR MIDLINE PLACEMENT FROM DAUGHTER MIKAL, SEE PHONE NUMBER IN CHART. CONSENT SIGNED BY DR. MACARIO. VERIFIED BY SECOND RN RAFA. CHARGE NURSE CYNTHIA CALLED PICC LINE SERVICE AND LEFT MESSAGE TO COME PLACE NEW MIDLINE.
--- NOTE | 2021-09-15 12:20 | NUR ---
PT RETURNED FROM CT ABD SCAN WITH JAVASCRIPT DEVELOPER AT BEDSIDE. PT IS CONNECTED BACK TO OXYGEN. NO DISTRESS NOTED.
--- NOTE | 2021-09-15 12:29 | NUR ---
UNABLE TO COLLECT URINE SPECIMEN PT IS INCONTINENT.
[2021-09-15] MEDS: INSULIN LISPRO SLIDING SCALE 100 UNITS/ML VIAL SUBQ PRN ×3 (13:24→20:42)
[2021-09-15] MEDS: HYDROcodone/APAP 5/325 MG 1 TAB TAB PO PRN ×2 (14:13→20:51)
--- NOTE | 2021-09-15 14:13 | NUR ---
PT STATED HE HAD PAIN IN HIS ABD AT A SCALE OF 6/10. PT WAS GIVEN NORCO FOR PAIN. WILL CONTINUE TO MONITOR.
--- NOTE | 2021-09-15 14:30 | NUR ---
MESSAGED PICC LINE SERVICE AND ASKED WHEN THE PICC LINE NURSE WOULD ARRIVE TO PLACE THE MIDLINE. THEY RESPONDED THAT THEY WOULD REACH OUT TO [facility] AND LET ME KNOW WHEN HE WILL ARRIVE.
--- NOTE | 2021-09-15 16:05 | NUR ---
RECEIVED MESSAGE FROM DR. MACARIO THAT CONFIRMED TO D/C PATIENT NOW THAT THE CT ABD IS NEGATIVE. PT IS OKAY TO D/C AFTER MIDLINE PLACEMENT.
--- NOTE | 2021-09-15 16:30 | NUR ---
INFORMED VERTICAL BORING MILL OPERATOR, AMRITA, THAT PICC LINE SERVICE STILL HAS NO RESPONDED WITH ETA REQUESTED. AMRITA CHAN TEXTED [facility] PICC LINE NURSE FOR ETA. WILL WAIT FOR RESPONSE.
--- NOTE | 2021-09-15 17:00 | NUR ---
PT IS STABLE. BREATHING IS UNLABORED ON 2 L O2 NC. SKIN IS WARM AND DRY. PT DENIES PAIN. WILL CONTINUE TO MONITOR. BED ALARM ON.
--- NOTE | 2021-09-15 19:24 | NUR ---
ENDORSED PT TO HEAD SCREEN WORKER NURSE FOR CONTINUITY OF CARE. PT IS STABLE. PLAN OF CARE DISCUSSED.
--- NOTE | 2021-09-15 19:25 | NUR ---
RECEIVED BEDSIDE REPORT FROM DAY RN. PT IS AWAKE ENGLISH SPEAKING ONLY. RESPIRATIONS ARE EQUAL AND UNLABORED ON 2L NC. SKIN IS WARM, DRY AND INTACT. IV ON LW 22G SL AND LFA 20G SL. DX PNA. POC TO D/C TO [facility] AND CONTINUE ABX FOR 10 MORE DAYS. PENDING MIDLINE PLACEMENT CONSENT IN CHART. SHERMAN MIDLINE NURSE AWARE. POC REVIEWED WITH PT. CALL LIGHT IS WITHIN REACH.
--- NOTE | 2021-09-15 19:35 | NUR ---
SHERMAN AT BEDSIDE WILL PLACE MIDLINE. TIME OUT CALLED.
[2021-09-15] MEDS: DONEPEZIL 10 MG TAB PO SCH (20:33)
[2021-09-15] MEDS: SIMVASTATIN 40 MG TAB PO SCH (20:44)
--- NOTE | 2021-09-15 21:00 | NUR ---
CALLED [facility] AT [phone] GAVE REPORT TO NURSE SHARP. PT GOING TO ROOM 28B UNDER DR DOVE.
--- NOTE | 2021-09-15 21:04 | NUR ---
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 SPOKE WITH ANGELA [facility] STAFF AND GAVE AN HOUR ETA FOR STEEL MELTER.
--- NOTE | 2021-09-15 21:44 | NUR ---
[facility] PICKED UP PATIENT. NO BELONGINGS WITH PATIENT. ARM BAND REMOVED. LW LFA IV REMOVED. IV CANNULAS INTACT. MINIMAL BLEEDING WELL CONTROLLED. D/C PAPERS GIVEN TO [facility]. VSS. PT LEFT IN STABLE CONDITION.
== END 2021-09-15 21:44 | DRG 193 ==
LOC: MED 10:15 → MTU 14:32 → MIC 09-13 23:00 → MTU 09-14 20:10
PROVIDERS: ADMIT Family Medicine; ATTEND Family Medicine
DX: J18.9 Pneumonia, unspecified organism (principal); G93.41 Metabolic encephalopathy; E44.0 Moderate protein-calorie malnutrition; G91.9 Hydrocephalus, unspecified; E78.5 Hyperlipidemia, unspecified; F03.90 Unspecified dementia, unspecified severity, without behavioral disturbance, psychotic disturbance, mood disturbance, and anxiety; E11.9 Type 2 diabetes mellitus without complications; N40.0 Benign prostatic hyperplasia without lower urinary tract symptoms; G93.89 Other specified disorders of brain; R94.31 Abnormal electrocardiogram [ECG] [EKG]; D53.9 Nutritional anemia, unspecified; R07.9 Chest pain, unspecified; I48.0 Paroxysmal atrial fibrillation; M19.90 Unspecified osteoarthritis, unspecified site; I11.9 Hypertensive heart disease without heart failure; Z20.822 Contact with and (suspected) exposure to COVID-19; Z79.899 Other long term (current) drug therapy; Z79.02 Long term (current) use of antithrombotics/antiplatelets; Z68.23 Body mass index [BMI] 23.0-23.9, adult
CPT/HCPCS: 36415; 36600; 70450; 71045; 71275; 74018; 76604; 76700; 80053; 81001; 82150; 82803; 82948; 83036; 83605; 83690; 83735; 83880; 84100; 84443; 84484; 85025; 85379; 85610; 85730; 87040; 87081; 87086; 92610; 93005; 94640; 96361; 96365; 96367; 97110; 97112; 97163-GP; 97530; 99285; J0282; J0456; J0696; J1815; J1940; J2060; J2270; J2543; J3475; J7060; Q0092; Q9967

== ENCOUNTER 2022-03-08 23:55 | Emergency (ER) | payer OTHER, MEDICAID ==
[~2022-03-08] VITALS: Ht 165.1 cm; Wt 70.3 kg
[~2022-03-08 23:55] MED LIST: AMIO200T10 PO; APIX2.5 PO; CLOP75TA55 PO; CYCL0.052 OP; DONE5TAB34 PO; FOS70 PO; ICOS0.5C PO; LANTUS SUBQ; METF1TAB1 PO; SIMV40TA1 PO; TAMS0.4C96 PO; VITA-16 PO; ZOS3.375PM IV
--- NOTE | 2022-03-08 23:55 | NUR ---
PT HARLEY TERRY. TAKEN TO BED 11
[2022-03-08 23:57] VITALS: BP 136/77
--- NOTE | 2022-03-09 00:20 | NUR ---
PT BIBA FOR S/P FALL FROM [facility], PT WAS USING THE PHONE IN BED AND REACH OVER TO GRAB SOMETHING AND ROUND OUT OF BED, PT AT BASELINE A/O X1, SPOKE WITH KIMI FROM [facility] AND SHE STATES THAT PT -LOC. PT FELL ONTO CARPET. PT HAS RED BRUISE TO RIGHT UPPER HEAD. PT DENIES ANY PAIN. PT PLACED ON CURATOR, DR MITTAL AT BEDSIDE, HX- A-FIB AND ON PLAVIX. NO OTHER BRUSING ON BODY.
--- NOTE | 2022-03-09 00:48 | NUR ---
PT TAKEN TO CT
--- NOTE | 2022-03-09 00:56 | NUR ---
PT RETURN FROM CT
--- NOTE | 2022-03-09 01:00 | NUR ---
PT DIAPER CHANGED AND NEW LINEN APPLIED, PT RESTING IN BED.
--- NOTE | 2022-03-09 02:15 | NUR ---
TRANSPORTATION BEING ARRANGED.
--- NOTE | 2022-03-09 02:34 | NUR ---
PT SOILED DIAPER CHANGED, NEW DIAPER APPLIED.
--- NOTE | 2022-03-09 02:40 | NUR ---
PT DISCHARGED, TRANSPORTATION BEING ARRANGED.
--- NOTE | 2022-03-09 04:56 | NUR ---
WARM BLANKET GIVEN TO PT, PT RESTING IN BED, RESPIRATIONS UNLABORED. NO DISTRESS OBSERVED.
--- NOTE | 2022-03-09 06:30 | NUR ---
PT CLEANED AND REPOSTIONED.
[2022-03-09 06:36] VITALS: BP 107/53
--- NOTE | 2022-03-09 07:30 | NUR ---
PT ASSISTED TO WHEELCHAIR WITHOUT COMPLICATION. PENDING TRANSPORT BACK TO FACILITY
--- NOTE | 2022-03-09 07:38 | NUR ---
GAVE REPORT TO ALYSSA CHAN AT [facility] AND NOTIFIED OF PATIENT'S TRANSPORT FOR WHEELCHAIR ASSIST ONCE ARRIVED.
--- NOTE | 2022-03-09 08:50 | NUR ---
Patient discharged with v/s stable. Written and verbal after care instructions given and explained. Patient verbalized understanding. Wheel Chair Assisted with to car. All questions addressed prior to discharge. Advised to follow up with PMD. FACILITY NOTIFIED OF PATIENT'S ARRIVAL AND STATED THEY WILL MEET HIM ONCE ARRIVED.
== END 2022-03-09 08:50 | disposition home or self-care (01) ==
LOC: MED 23:55
DX: Z04.3 Encounter for examination and observation following other accident (principal); E11.9 Type 2 diabetes mellitus without complications; I10 Essential (primary) hypertension; Z79.4 Long term (current) use of insulin; Z79.899 Other long term (current) drug therapy; W06.XXXA Fall from bed, initial encounter; Y93.89 Activity, other specified; Y92.128 Other place in nursing home as the place of occurrence of the external cause; Y99.8 Other external cause status
CPT/HCPCS: 70450; 93005; 99284

== ENCOUNTER 2022-04-01 09:49 | Outpatient (CLI) | payer OTHER, MEDICAID | END 2022-04-01 20:17 | disposition home or self-care (01) | LOC: MRD 09:49 | PROVIDERS: ATTEND Family Medicine | DX: I67.2 Cerebral atherosclerosis (principal); G93.89 Other specified disorders of brain; Q04.8 Other specified congenital malformations of brain | CPT/HCPCS: 70450 ==

== ENCOUNTER 2022-11-10 17:42 | Emergency (ER) | payer OTHER ==
[~2022-11-10] VITALS: Ht 167.6 cm; Wt 72.6 kg
[~2022-11-10 17:42] MED LIST changes: +SIMV-373 PO; -SIMV40TA1 PO
[2022-11-10 18:04] VITALS: BP 144/82
--- NOTE | 2022-11-10 18:09 | NUR ---
TO BED 10 VIA AMB. PT WITH OCC. NAUSEA AND VOMITING
[2022-11-10 18:38] LABS: BASOPHILS % (AUTO) 0.3 % (0.0-2.0); EOSINOPHILS # (AUTO) 0.3 K/uL (0-0.4); EOSINOPHILS % (AUTO) 4.8 % (0.0-4.0); HEMATOCRIT 34.3 % (36-52); HEMOGLOBIN 11.2 g/dL (12.0-18.0); LYMPHOCYTES # (AUTO) 1.8 K/uL (2.0-11.5); LYMPHOCYTES % (AUTO) 25.9 % (20.5-51.1); MEAN CORPUSCULAR HEMOGLOBIN 32 pg (27-31); MEAN CORPUSCULAR HGB CONC 33 g/dL (33-37); MEAN CORPUSCULAR VOLUME 96.8 fL (80-94); MONOCYTES # (AUTO) 0.5 K/uL (0.8-1.0); MONOCYTES % (AUTO) 7.9 % (1.7-9.3); NEUTROPHILS # (AUTO) 4.2 K/uL (1.8-7.7); NEUTROPHILS % (AUTO) 61.1 % (42.2-75.2); PLATELET COUNT (AUTO) 270 K/uL (140-450); RED BLOOD CELL COUNT(AUTO) 3.54 MIL/uL (4.20-6.10); WHITE BLOOD COUNT (AUTO) 6.9 K/uL (4.8-10.8)
[2022-11-10 18:53] LABS: ALBUMIN 2.9 g/dL (3.4-5.0); ANION GAP 16.6 (8-16); ASPARTATE AMINOTRANSFERASE 15 U/L (15-37); CARBON DIOXIDE 23.6 mmol/L (21-32); CHLORIDE 105 mmol/L (98-107); CREATININE 0.9 mg/dL (0.6-1.3); GLUCOSE 107 mg/dL (74-106); LIPASE 345 U/L (73-393); POTASSIUM 4.2 mmol/L (3.5-5.1); SODIUM SERUM 141 mmol/L (136-145); TOTAL BILIRUBIN 0.3 mg/dL (0.0-1.0); UREA NITROGEN, BLOOD 26 mg/dL (7-18)
--- NOTE | 2022-11-10 19:27 | NUR ---
REPORT GIVEN TO SIGRID CHAN
--- NOTE | 2022-11-10 19:30 | NUR ---
Patient resting in bed, awake, chest rise and fall symmetrical, no c/o pain or s/s of distress, patient on monitor.
[2022-11-10] MEDS ORDERED: NACL 0.9% 1,000 ML IV ONE (21:00)
[2022-11-10] MEDS ORDERED: ONDANSETRON 4 MG/2 ML VIAL IVP ONE (21:00)
--- NOTE | 2022-11-10 21:09 | NUR ---
Patient resting in bed, awake, chest rise and fall symmetrical, no c/o pain or s/s of distress, patient on monitor.
[2022-11-10 21:50] LABS: APPEARANCE,URINE CLEAR (CLEAR); BILIRUBIN,URINE 1+ (NEGATIVE); BLOOD, URINE TRACE-I (NEGATIVE); COLOR,URINE YELLOW (YELLOW); LEUKOCYTE ESTERASE ,URINE NEGATIVE (NEGATIVE); NITRITE, URINE NEGATIVE (NEGATIVE); UGLUCOSE NEGATIVE (NEGATIVE)
[2022-11-10] MEDS ORDERED: ONDA-188 SL (22:44)
[2022-11-10 22:45] LABS: RBC,URINE 0-5 /HPF (0-5)
--- NOTE | 2022-11-11 00:01 | NUR ---
Report given Charge Nurse Maureen CHAN. Charge Nurse Maureen RN verbalized understanding of report, no further questions.
--- NOTE | 2022-11-11 00:10 | NUR ---
REPORT RECEIVED FROM DUSTIN MATTA. ASSUMED CARE OF PATIENT AT THIS TIME. PT ATTACHED TO MONITOR. VSS AND FOLLOWS: BP 116/57, HR 68, RR 14, SPO02 100%.
[2022-11-11 00:11] VITALS: BP 116/57
--- NOTE | 2022-11-11 00:13 | NUR ---
REPORT GIVEN TO NAYANA, NURSING TEACHERS' AIDE. ETA FOR P/U AT 0030.
--- NOTE | 2022-11-11 00:45 | NUR ---
TRANSPORTATION AT BEDSIDE FOR TRANSPORT.
--- NOTE | 2022-11-11 00:48 | NUR ---
CALLED [facility] TO NOTIFY PT IS EN ROUTE. ETA 5-10 MINS
--- NOTE | 2022-11-11 00:49 | NUR ---
Patient discharged with v/s stable. Written and verbal after care instructions given and explained. Patient alert, oriented and verbalized understanding of instructions. Ambulance Transport back to facilty. All questions addressed prior to discharge. ID band removed. Patient advised to follow up with PMD. Rx of ZOFRAN given. Patient educated on indication of medication including possible reaction and side effects. Opportunity to ask questions provided and answered.
== END 2022-11-11 00:49 | disposition home or self-care (01) ==
LOC: MED 17:42
DX: N28.1 Cyst of kidney, acquired (principal); Z20.822 Contact with and (suspected) exposure to COVID-19; R10.84 Generalized abdominal pain; R11.2 Nausea with vomiting, unspecified; E11.9 Type 2 diabetes mellitus without complications; I10 Essential (primary) hypertension; F03.90 Unspecified dementia, unspecified severity, without behavioral disturbance, psychotic disturbance, mood disturbance, and anxiety; Z79.4 Long term (current) use of insulin; Z79.899 Other long term (current) drug therapy
CPT/HCPCS: 36415; 74176; 80053; 81001; 83690; 85025; 87426; 93005; 96361; 96374; 99285; J2405; J7030

== ENCOUNTER 2022-12-04 19:02 | Inpatient (IN) | payer OTHER ==
[~2022-12-04] VITALS: Ht 167.6 cm; Wt 49.0 kg
[~2022-12-04 19:02] MED LIST changes: +ONDA-188 SL
[2022-12-04 19:09] VITALS: BP 98/64
[2022-12-04] MEDS ORDERED: cefTRIAXone 1,000 MG in DEXT 5% MINI-BAG PLUS 50 ML IV ONE (19:10)
--- NOTE | 2022-12-04 19:30 | NUR ---
Pt in bed 4, on monitor.
--- NOTE | 2022-12-04 19:33 | NUR ---
Note obey in EDM - 12/04/22 at 1937 by [id number] Patient to be transferred to [facility]. Is being transferred back, patient is discharged by ER physician. Receiving facility has accepting physician and available space. ER physician has signed transfer form. Patient or responsible constitution party has agreed to transfer and signed form. Patient belongings inventoried and will be sent with patient. Copy of nursing notes, lab reports, EKG, Physicians Orders and X-rays to be sent with patient. Report called to Rafal CHAN at receiving facility, Rafal CHAN verbalized understanding of report, no further questions. [place] [facility] has been called and has arrived for pickup and transfer.
--- NOTE | 2022-12-04 19:36 | NUR ---
RT suctioning patient.
--- NOTE | 2022-12-04 19:43 | NUR ---
Patient resting in bed, Awake, chest rise and fall symmetrical, no s/s of distress, on monitor.
[2022-12-04] MEDS ORDERED: cefTRIAXone 1,000 MG VIAL ONE (20:19)
[2022-12-04 20:36] LABS: BASOPHILS % (AUTO) 0.1 % (0.0-2.0); HEMATOCRIT 35.3 % (36-52); HEMOGLOBIN 11.6 g/dL (12.0-18.0); LYMPHOCYTES # (AUTO) 0.6 K/uL (2.0-11.5); LYMPHOCYTES % (AUTO) 8.6 % (20.5-51.1); MEAN CORPUSCULAR HEMOGLOBIN 31 pg (27-31); MEAN CORPUSCULAR HGB CONC 33 g/dL (33-37); MEAN CORPUSCULAR VOLUME 96.1 fL (80-94); MONOCYTES # (AUTO) 0.4 K/uL (0.8-1.0); MONOCYTES % (AUTO) 5.6 % (1.7-9.3); NEUTROPHILS # (AUTO) 6.1 K/uL (1.8-7.7); NEUTROPHILS % (AUTO) 85.7 % (42.2-75.2); PLATELET COUNT (AUTO) 247 K/uL (140-450); RED BLOOD CELL COUNT(AUTO) 3.68 MIL/uL (4.20-6.10); RED CELL DISTRIBUTION WIDTH 16.2 % (11.6-13.7); WHITE BLOOD COUNT (AUTO) 7.1 K/uL (4.8-10.8)
[2022-12-04 20:58] LABS: ALBUMIN 2.1 g/dL (3.4-5.0); ANION GAP 20.3 (8-16); ASPARTATE AMINOTRANSFERASE 12 U/L (15-37); CARBON DIOXIDE 21.5 mmol/L (21-32); CHLORIDE 117 mmol/L (98-107); CREATININE 2.2 mg/dL (0.6-1.3); GLUCOSE 168 mg/dL (74-106); POTASSIUM 4.8 mmol/L (3.5-5.1); SODIUM SERUM 154 mmol/L (136-145); TOTAL BILIRUBIN 0.4 mg/dL (0.0-1.0)
[2022-12-04 21:01] LABS: UREA NITROGEN, BLOOD 103 mg/dL (7-18)
--- NOTE | 2022-12-04 21:13 | NUR ---
Patient resting in bed, Awake, chest rise and fall symmetrical, no s/s of pain or s/s of distress, on monitor.
[2022-12-04] MEDS ORDERED: NACL 0.9% 1,500 ML IV SCH (21:15)
--- NOTE | 2022-12-04 21:15 | NUR ---
Dr. iL spoke to patient's daughter.
--- NOTE | 2022-12-04 21:40 | NUR ---
Dr. Kraus verbally informed that patient has not urinated via condom catheter, and coude catheter could not be inserted. Dr. Kraus verbalized understanding, no new orders.
[2022-12-04] MEDS ORDERED: NUTR887L11 PO (22:26)
[2022-12-04] MEDS ORDERED: BISA-218 RC (22:26)
[2022-12-04] MEDS ORDERED: DEXT38GE PO (22:26)
[2022-12-04] MEDS ORDERED: ACET-2619 PO (22:26)
[2022-12-04] MEDS ORDERED: GLUC1PDS1 IM (22:26)
[2022-12-04] MEDS ORDERED: INSU100I47 SQ (22:26)
[2022-12-04] MEDS ORDERED: CYCL0.052 OP (22:26)
[2022-12-04] MEDS ORDERED: MULT-1328 PO (22:26)
[2022-12-04] MEDS ORDERED: INSU100S5 IJ (22:26)
[2022-12-04] MEDS ORDERED: MAGN400S60 PO (22:26)
[2022-12-04] MEDS ORDERED: FLEPED RC (22:26)
[2022-12-04] MEDS ORDERED: D50SYR IV (22:26)
[2022-12-04] MEDS ORDERED: ASCO500T95 PO (22:26)
[2022-12-04] MEDS ORDERED: METF1TAB1 PO (22:26)
[2022-12-04] MEDS ORDERED: MIRT-91 PO (22:26)
[2022-12-04] MEDS ORDERED: DOCU-299 PO (22:26)
[2022-12-04] MEDS ORDERED: MEMA5TAB PO (22:26)
[2022-12-04] MEDS ORDERED: COLL30OI TP (22:26)
[2022-12-04] MEDS ORDERED: METF-346 PO (22:26)
[2022-12-04] MEDS ORDERED: SYN.05 PO (22:26)
[2022-12-04] MEDS ORDERED: ICOS0.5C PO (22:26)
[2022-12-04] MEDS ORDERED: PIPERACILLIN/TAZOBACTAM 2.25 GM VIAL IV ONE (22:40)
[2022-12-04] MEDS: PIPERACILLIN/TAZOBACTAM 2.25 GM in DEXTROSE 5% 50 ML IV SCH (22:54)
--- NOTE | 2022-12-04 23:10 | NUR ---
Patient resting in bed, Awake, chest rise and fall symmetrical, no s/s of pain or s/s of distress, on monitor.
[2022-12-04] MEDS ORDERED: DEXTROSE 50% 50 ML SYR IVP PRN (23:30)
[2022-12-05] MEDS: BLOOD GLUCOSE MONITORING 1 DEV DEV FS SCH ×5 (00:10→21:00)
--- NOTE | 2022-12-05 01:07 | NUR ---
Patient resting in bed, Awake, chest rise and fall symmetrical, no s/s of pain or s/s of distress, on monitor.
[2022-12-05] MEDS ORDERED: NACL 0.9% 1,000 ML IV SCH (02:00)
[2022-12-05 02:34] LABS: BILIRUBIN,URINE 2+ (NEGATIVE); BLOOD, URINE 3+ (NEGATIVE); COLOR,URINE BROWN (YELLOW); LEUKOCYTE ESTERASE ,URINE 2+ (NEGATIVE); NITRITE, URINE POSITIVE (NEGATIVE); PH,URINE 5.5 (5.0-9.0); UGLUCOSE NEGATIVE (NEGATIVE)
[2022-12-05 02:35] LABS: APPEARANCE,URINE TURBID (CLEAR)
--- NOTE | 2022-12-05 02:40 | NUR ---
Patient resting in bed, Awake, chest rise and fall symmetrical, no s/s of pain or s/s of distress, on monitor.
[2022-12-05 02:47] LABS: RBC,URINE TOO NUMEROUS TO COUN /HPF (0-5)
--- NOTE | 2022-12-05 04:22 | NUR ---
Patient resting in bed resting with eyes closed, chest rise and fall symmetrical, no s/s of pain or s/s of distress, on monitor.
[2022-12-05] MEDS ORDERED: PIPERACILLIN/TAZOBACTAM 3.375 GM in DEXTROSE 5% 50 ML IV SCH (05:00)
--- NOTE | 2022-12-05 06:25 | NUR ---
Patient resting in bed, Awake, chest rise and fall symmetrical, no s/s of pain or s/s of distress, on monitor.
[2022-12-05 06:37] LABS: BASOPHILS % (AUTO) 0.1 % (0.0-2.0); EOSINOPHILS % (AUTO) 0.1 % (0.0-4.0); HEMOGLOBIN 10.9 g/dL (12.0-18.0); LYMPHOCYTES # (AUTO) 0.4 K/uL (2.0-11.5); LYMPHOCYTES % (AUTO) 4.5 % (20.5-51.1); MEAN CORPUSCULAR HEMOGLOBIN 31 pg (27-31); MEAN CORPUSCULAR HGB CONC 32 g/dL (33-37); MEAN CORPUSCULAR VOLUME 97.8 fL (80-94); MONOCYTES # (AUTO) 0.3 K/uL (0.8-1.0); MONOCYTES % (AUTO) 3.2 % (1.7-9.3); NEUTROPHILS # (AUTO) 7.4 K/uL (1.8-7.7); NEUTROPHILS % (AUTO) 92.1 % (42.2-75.2); PLATELET COUNT (AUTO) 201 K/uL (140-450); RED BLOOD CELL COUNT(AUTO) 3.47 MIL/uL (4.20-6.10); RED CELL DISTRIBUTION WIDTH 15.8 % (11.6-13.7)
[2022-12-05] MEDS ORDERED: PIPERACILLIN/TAZOBACTAM 2.25 GM VIAL IV ONE (06:42)
[2022-12-05 06:48] LABS: ANION GAP 17.3 (8-16); CARBON DIOXIDE 20.6 mmol/L (21-32); CHLORIDE 121 mmol/L (98-107); CREATININE 1.8 mg/dL (0.6-1.3); GLUCOSE 142 mg/dL (74-106); POTASSIUM 3.9 mmol/L (3.5-5.1); SODIUM SERUM 155 mmol/L (136-145)
[2022-12-05 06:52] LABS: UREA NITROGEN, BLOOD 92 mg/dL (7-18)
[2022-12-05] MEDS: PIPERACILLIN/TAZOBACTAM 2.25 GM in DEXTROSE 5% 50 ML IV SCH ×3 (06:53→22:34)
--- NOTE | 2022-12-05 07:18 | NUR ---
Pt report given to Courtney CHAN. Courtney CHAN verbalized uderstanding of report, no further questions.
--- NOTE | 2022-12-05 08:15 | NUR ---
Patient will be admitted to care of . Admited to TELE. Will go to room 107A. Belongings list completed. Report to DUSTIN MARINO.
[2022-12-05 08:30] VITALS: BP 106/58
--- NOTE | 2022-12-05 09:00 | NUR ---
PATIENT HAS BEEN SCREENED AND CATEGORIZED HIGH NUTRITION RISK. PATIENT WILL BE SEEN WITHIN 1-2 DAYS OF ADMISSION. 12/05/22-12/06/[address]
[2022-12-05] MEDS ORDERED: POTASSIUM CHLORIDE 10 MEQ TABER PO PRN (09:25)
[2022-12-05] MEDS ORDERED: VANCOMYCIN PER PHARMACY MC PRN (09:25)
[2022-12-05] MEDS ORDERED: MAG SULF 2000 MG/WATER PREMIX 50 ML IV PRN (09:25)
[2022-12-05] MEDS ORDERED: CLINICAL MONITORING MC PRN (10:15)
[2022-12-05] MEDS ORDERED: VANCOMYCIN HCL 750 MG in DEXTROSE 5% 250 ML IV SCH (11:00)
[2022-12-05 12:00] VITALS: BP 121/57
--- NOTE | 2022-12-05 12:15 | NUR ---
TALKED WITH PATIENTS DAUGHTER. SHE INFORMED ME THAT FOR THE PAST TWO WEEKS PT HAS BEEN NOT WANTING TO EAT MUCH AND THE FACILITY SAYS THAT HE ONLY EATS ABOUT 20% OF HIS FOOD. ALSO INFORMED ME THAT PT SPEAKS ONLY TELUGU AND HAS BEEN SLEEPING A LOT RECENTLY.
[2022-12-05] MEDS ORDERED: NACL 0.45% 1,000 ML IV SCH (12:35)
--- NOTE | 2022-12-05 13:05 | NUR ---
RECEIVED REPORT FROM ER NURSE FOR CONTINUITY OF CARE. PT WAS STABLE UPON TRANSPORT WITH NO SIGNS OF DISTRESS. PT IS A&OX1, SKIN IS INTACT, IS ON 2L NC STATING AT 99%, AND IS BEDBOUND. PT ONLY SPEAKS UKRAINIAN. PT HAS AN 20G IN HIS R WRIST RUNNING NS@100. ALL SAFETY MEASURES IN PLACE INCLUDING BED IN LOW POSITION AND CALL LIGHT WITHIN REACH. MONITORING CONTINUED. Addendum: 12/05/22 at 1431 by Aline Melendez RN PT WAS BROUGHT AT 0830 THIS MORNING AND THIS IS WHEN I HAD RECEIVED REPORT
[2022-12-05] MEDS: DEXTROSE 5% 1,000 ML IV SCH (14:11)
--- NOTE | 2022-12-05 14:16 | NUR ---
12/05/22 RD INITIAL ASSESSMENT COMPLETED PLEASE REFER TO NUTRITION ASSESSMENT UNDER CARE ACTIVITY FOR ESTIMATED NUTRITIONAL NEEDS. 1.CONTINUE CARDIAC DIET TOLERATED 2.RD RECOMMENDS ADDING CCHO 60 GRAM DIET ALONG WITH CURRENT DIET DUE TO DIABETES 3.RD RECOMMENDS GLUCERNA TID TO HELP WITH PO AND NUTRIENT INTAKE. THIS WILL PROVIDE 660KCALS AND 30 GRAMS OF PROTEIN. 4.RD WILL CONTINUE TO MONITOR WEIGHTS, PO INTAKE, SKIN INTEGRITY AND RELATED LABS. 5. RD TO FOLLOW-UP 2-3 DAYS, HIGH RISK KENNY HERRERA RD
[2022-12-05 16:00] VITALS: BP 131/62
[2022-12-05] MEDS ORDERED: metFORMIN 500 MG TAB PO SCH (17:00)
[2022-12-05 19:01] LABS: ALBUMIN 1.6 g/dL (3.4-5.0); ANION GAP 14.8 (8-16); ASPARTATE AMINOTRANSFERASE 12 U/L (15-37); CARBON DIOXIDE 21.6 mmol/L (21-32); CHLORIDE 121 mmol/L (98-107); CREATININE 1.4 mg/dL (0.6-1.3); GLUCOSE 170 mg/dL (74-106); POTASSIUM 3.4 mmol/L (3.5-5.1); SODIUM SERUM 154 mmol/L (136-145); TOTAL BILIRUBIN 0.3 mg/dL (0.0-1.0)
[2022-12-05 19:06] LABS: UREA NITROGEN, BLOOD 67 mg/dL (7-18)
[2022-12-05] MEDS: ALBUTEROL SULFATE/IPRATROPIU 3 ML SOL IH PRN (19:17)
--- NOTE | 2022-12-05 19:29 | NUR ---
ENDORSED PT TO CERTIFIED NUCLEAR MEDICINE TECHNOLOGIST NURSE FOR CONTINUITY OF CARE. PT STABLE AT THIS TIME.
[2022-12-05 20:00] VITALS: BP 117/58
[2022-12-05] MEDS ORDERED: AMIODARONE 200 MG TAB PO SCH (21:00)
[2022-12-05] MEDS: AMIODARONE 200 MG TAB PO SCH (21:00)
[2022-12-05] MEDS: SIMVASTATIN 20 MG TAB PO SCH (21:00)
[2022-12-05] MEDS: INSULIN LISPRO SLIDING SCALE 100 UNITS/ML VIAL SUBQ PRN (22:30)
[2022-12-06] VITALS: BP 108/54
[2022-12-06] MEDS: ALBUTEROL SULFATE/IPRATROPIU 3 ML SOL IH PRN (00:41)
[2022-12-06] MEDS: DEXTROSE 5% 1,000 ML IV SCH ×2 (03:17→16:40)
[2022-12-06 04:00] VITALS: BP 109/59
[2022-12-06] MEDS: BLOOD GLUCOSE MONITORING 1 DEV DEV FS SCH ×4 (06:10→21:39)
[2022-12-06] MEDS: INSULIN LISPRO SLIDING SCALE 100 UNITS/ML VIAL SUBQ PRN ×3 (06:11→16:54)
[2022-12-06] MEDS: LEVOTHYROXINE 0.05 MG TAB PO SCH (06:12)
[2022-12-06] MEDS: PIPERACILLIN/TAZOBACTAM 2.25 GM in DEXTROSE 5% 50 ML IV SCH ×3 (06:12→21:39)
--- NOTE | 2022-12-06 07:05 | NUR ---
RECEIVED REPORT FROM COOK VEGETABLE NURSE FOR CONTINUITY OF CARE. PTS IS STABLE AT THIS TIME.
[2022-12-06 07:06] LABS: BASOPHILS % (AUTO) 0.1 % (0.0-2.0); EOSINOPHILS # (AUTO) 0.2 K/uL (0-0.4); EOSINOPHILS % (AUTO) 2.5 % (0.0-4.0); HEMATOCRIT 30.9 % (36-52); HEMOGLOBIN 10.3 g/dL (12.0-18.0); LYMPHOCYTES # (AUTO) 0.7 K/uL (2.0-11.5); LYMPHOCYTES % (AUTO) 10.6 % (20.5-51.1); MEAN CORPUSCULAR HEMOGLOBIN 32 pg (27-31); MEAN CORPUSCULAR HGB CONC 33 g/dL (33-37); MEAN CORPUSCULAR VOLUME 96.1 fL (80-94); MONOCYTES # (AUTO) 0.3 K/uL (0.8-1.0); MONOCYTES % (AUTO) 4.1 % (1.7-9.3); NEUTROPHILS # (AUTO) 5.4 K/uL (1.8-7.7); NEUTROPHILS % (AUTO) 82.7 % (42.2-75.2); PLATELET COUNT (AUTO) 163 K/uL (140-450); RED BLOOD CELL COUNT(AUTO) 3.22 MIL/uL (4.20-6.10); RED CELL DISTRIBUTION WIDTH 15.8 % (11.6-13.7)
[2022-12-06 07:07] LABS: ANION GAP 13.8 (8-16); CARBON DIOXIDE 22.5 mmol/L (21-32); CHLORIDE 118 mmol/L (98-107); CREATININE 1.3 mg/dL (0.6-1.3); GLUCOSE 179 mg/dL (74-106); POTASSIUM 4.3 mmol/L (3.5-5.1); SODIUM SERUM 150 mmol/L (136-145); UREA NITROGEN, BLOOD 55 mg/dL (7-18)
[2022-12-06 07:18] LABS: WHITE BLOOD COUNT (AUTO) 6.5 K/uL (4.8-10.8)
[2022-12-06 08:00] VITALS: BP 114/55
[2022-12-06 08:10] LABS: MAGNESIUM 1.9 mg/dL (1.8-2.4); PHOSPHORUS 2.2 mg/dL (2.5-4.9)
--- NOTE | 2022-12-06 08:57 | NUR ---
PT. WITH LOW ALEX SCALE AT MODERATE TO HIGH RISK, CONTINUE TO FOLLOW PRESSURE INJURY PREVENTION INTERVENTIONS. -POSITIONING: TURN AND REPOSITION PATIENT Q 2H OR SOONER USE PILLOWS TO KEEP BONY PROMINENCES FROM DIRECT CONTACT WITH SURFACES USE REPOSITIONING WEDGES TO PROVIDE 30-DEGREE ANGLE FOR SIDE LYING POSITIONS OFFLOADING OR FOAM DRESSING TO ALL TUBING TO PREVENT MEDICAL DEVICES RELATED PRESSURE INJURY -RE-EVALUATING AND MANAGING INCONTINENCE MONITOR SKIN CONDITION DURING POSITION CHANGE DO NOT MASSAGE REDNESS, BONY PROMINENCES FREQUENT KIRSTIN-CARE AND PROVIDE BARRIER CREAMS PRN IF SOILING MOISTURE CONTROL BY OFFER BED STEPHENSON/URINAL /ABSORBENT PAD TO WICK AND HOLD MOISTURE KEEP SKIN DRY AND PROTECT FROM FRICTION -MANAGE FRICTION/SHEAR/MOBILITY KEEP HOB AT THE LOWEST LEVEL OF ELEVATION NO MORE THAN 30 DEGREE UNLESS OTHERWISE CONTRAINDICATED USE LIFT SHEET OR TRANSFER DEVICE TO MOVE PATIENT AND PREVENT LATERAL SHEER. PROTECT HEELS, ELBOWS BONY PROMINENCES WITH SKIN BERRIES OR FOAM DRESSING IF EXPOSED TO FRICTION OFFLOAD BILATERAL HEELS BY PLACING PILLOWS UNDER CALVES AT ALL TIMES, UNLESS OTHERWISE CONTRAINDICATED -PRESSURE REDISTRIBUTION SURFACE THERAPY KOREY ISOFLEX MATTRESS -NUTRITION: PLEASE FOLLOW RD RECOMMENDATIONS AND OFFER NUTRITION SUPPLEMENTS IF ORDERED. PLEASE CONTACT WOUND CARE NURSE FOR ANY QUESTION AND CHANGE OF WOUND CONDITION.
[2022-12-06] MEDS ORDERED: MAGNESIUM HYDROXIDE 2400 MG/30 ML UDC PO SCH (09:00)
[2022-12-06] MEDS ORDERED: ALENDRONATE SODIUM 70 MG TAB PO SCH (09:00)
[2022-12-06] MEDS ORDERED: SODIUM PHOSPHATE PEDIATRIC 67.5 ML ENEM RC SCH (09:00)
--- NOTE | 2022-12-06 09:16 | NUR ---
FNS CONSULT RECEIVED FOR UNINTENTIONAL WEIGHT LOSS AND NO EATING X3 DAYS 12/06/22. PATIENT WAS SEEN ON 12/05/[address] AND WILL BE FOLLOWED UP IN 1-2 DAYS FOR CONSULT.
[2022-12-06] MEDS: ASCORBIC ACID 500 MG TAB PO SCH (10:28)
[2022-12-06] MEDS: bisacodyL 10 MG SUPP RC SCH (10:28)
[2022-12-06] MEDS: MEMANTINE 10 MG TAB PO SCH (10:29)
[2022-12-06] MEDS: AMIODARONE 200 MG TAB PO SCH ×2 (10:30→21:39)
[2022-12-06] MEDS: CLOPIDOGREL 75 MG TAB PO SCH (10:30)
[2022-12-06] MEDS: MIRTAZAPINE 15 MG TAB PO SCH (10:31)
[2022-12-06] MEDS: TAMSULOSIN 0.4 MG CAP PO SCH (10:31)
--- NOTE | 2022-12-06 11:26 | NUR ---
DC PLANNING AN 87 Y.O.MALE TURKMEN PATIENT , A RESIDENT OF [facility] ADMITTED IN TELEMETRY FOR SOB.HE DESATURATED ON ROOM AIR AT 89% WHICH IMPROVED TO 98% WITH 2L.PATIENT IS COVID (-).URINE CULTURE >100.000 CFU/ML.ID AND SUSCEPTIBILITY TO FOLLOW.BLOOD CULTURE(-).NO EMERGENT LEASING SALES CONSULTANT FOR NOW PER NEPHRO..CREAT.1.3 BUN-50 NA-150 .CXR- SUGGESTIVE OF PNEUMONIA AND /OR ATELECTASIS. ON VANCO AND ZOSYN.DC PLAN-BACK TO [facility] WHEN PATIENT CONDITION IMPROVES.CM TO FOLLOW. Addendum: 12/08/22 at 1551 by Keely Gill RN DC PLANNING: SEEN BY FRANC AND NEPHDEWAYNE. CONTINUED IV ABX VANCOMYCIN AND ZOSYN. DC PLAN TO RETURN TO [facility] WHEN STABLE. CM TO FOLLOW Addendum: 12/09/22 at 1159 by EFRAIN FUNES CM RECEIVED ORDER FOR PATIENT TO GO BACK TO [facility] FOR CONTINUE OF CARE. FAXED ALL PAPERWORK TO [facility]. SPOKE WITH AC LOCATED AT [address] [place] [id number]. PATIENT WILL BE GOING TO ROOM 53-C UNDER DR CASSIDY. SPOKE WITH LIBERTAD WHO GAVE THE FOLLOWING AUTH'S: [facility] AUTH#[id number] AND TRANSPORTATION AUTH#[id number]. TRANSPORTATION WILL BE ARRANGED WITH [facility] . Addendum: 12/09/22 at 1214 by EFRAIN FUNES CM [facility] WILL BE PICKING UP BETWEEN [phone]. NURSE AGUERO AWARE OF THE ABOVE INFORMATION AND CALLED SHANITA REN WHO WAS LEFT A VOICE MAIL REGARDING THE ABOVE INFO.
[2022-12-06] MEDS: VANCOMYCIN HCL 750 MG in DEXTROSE 5% 250 ML IV SCH (11:31)
[2022-12-06 12:00] VITALS: BP 98/55
[2022-12-06 16:00] VITALS: BP 96/54
--- NOTE | 2022-12-06 19:05 | NUR ---
ENDORSED PT TO BLOWER BLAST FURNACE NURSE FOR CONTINUITY OF CARE. PT STABLE AT THIS TIME.
[2022-12-06 20:00] VITALS: BP 106/58
[2022-12-06] MEDS: SIMVASTATIN 20 MG TAB PO SCH (21:39)
[2022-12-07] VITALS (7 sets, daily range): BP systolic 100–128; BP diastolic 49–64
[2022-12-07] MEDS: DEXTROSE 5% 1,000 ML IV SCH ×2 (05:03→16:48)
[2022-12-07] MEDS: PIPERACILLIN/TAZOBACTAM 2.25 GM in DEXTROSE 5% 50 ML IV SCH ×3 (05:14→21:09)
[2022-12-07] MEDS: LEVOTHYROXINE 0.05 MG TAB PO SCH (06:15)
--- NOTE | 2022-12-07 06:15 | NUR ---
PT RESTING COMFORTABLY ON 2L NASAL CANNULA. SATURATION 97%. EQUAL CHEST RISE, NO DISTRESS NOTED. WILL CONTINUE TO MONITOR.
[2022-12-07] MEDS: BLOOD GLUCOSE MONITORING 1 DEV DEV FS SCH ×4 (06:16→21:09)
[2022-12-07 07:21] LABS: MAGNESIUM 1.6 mg/dL (1.8-2.4); PHOSPHORUS 1.6 mg/dL (2.5-4.9)
[2022-12-07 07:27] LABS: BASOPHILS % (AUTO) 0.1 % (0.0-2.0); EOSINOPHILS # (AUTO) 0.2 K/uL (0-0.4); EOSINOPHILS % (AUTO) 2.4 % (0.0-4.0); HEMATOCRIT 27.5 % (36-52); HEMOGLOBIN 9.2 g/dL (12.0-18.0); LYMPHOCYTES % (AUTO) 13.3 % (20.5-51.1); MEAN CORPUSCULAR HEMOGLOBIN 32 pg (27-31); MEAN CORPUSCULAR HGB CONC 33 g/dL (33-37); MEAN CORPUSCULAR VOLUME 95.1 fL (80-94); MONOCYTES # (AUTO) 0.3 K/uL (0.8-1.0); NEUTROPHILS # (AUTO) 5.9 K/uL (1.8-7.7); NEUTROPHILS % (AUTO) 80.2 % (42.2-75.2); PLATELET COUNT (AUTO) 154 K/uL (140-450); RED BLOOD CELL COUNT(AUTO) 2.89 MIL/uL (4.20-6.10); RED CELL DISTRIBUTION WIDTH 15.6 % (11.6-13.7); WHITE BLOOD COUNT (AUTO) 7.4 K/uL (4.8-10.8)
[2022-12-07 07:32] LABS: ANION GAP 12.3 (8-16); CARBON DIOXIDE 21.3 mmol/L (21-32); CHLORIDE 112 mmol/L (98-107); CREATININE 0.9 mg/dL (0.6-1.3); GLUCOSE 160 mg/dL (74-106); POTASSIUM 3.6 mmol/L (3.5-5.1); SODIUM SERUM 142 mmol/L (136-145); UREA NITROGEN, BLOOD 34 mg/dL (7-18)
--- NOTE | 2022-12-07 08:06 | NUR ---
GOT REPORT FROM THE NIGHT NURSE, PT ASKING FOR PAIN MED.[email or web address] Addendum: 12/07/22 at 0809 by Clarke Hill RN PT WAS AWAKE DID NOT ASK FOR PAIN MED, NO SOB.[email or web address]
[2022-12-07] MEDS: MEMANTINE 10 MG TAB PO SCH (08:50)
[2022-12-07] MEDS: MIRTAZAPINE 15 MG TAB PO SCH (08:51)
[2022-12-07] MEDS: ASCORBIC ACID 500 MG TAB PO SCH (08:51)
[2022-12-07] MEDS: TAMSULOSIN 0.4 MG CAP PO SCH (08:51)
[2022-12-07] MEDS: bisacodyL 10 MG SUPP RC SCH (08:51)
[2022-12-07] MEDS: AMIODARONE 200 MG TAB PO SCH ×2 (08:51→21:07)
[2022-12-07] MEDS: CLOPIDOGREL 75 MG TAB PO SCH (08:51)
--- NOTE | 2022-12-07 11:32 | NUR ---
GIVE THE VANCO ORDERED THE PHARMACY .[email or web address]
[2022-12-07] MEDS: VANCOMYCIN HCL 750 MG in DEXTROSE 5% 250 ML IV SCH (11:43)
[2022-12-07] MEDS: INSULIN LISPRO SLIDING SCALE 100 UNITS/ML VIAL SUBQ PRN ×2 (11:57→16:59)
--- NOTE | 2022-12-07 14:38 | NUR ---
CHECKED ON PT. RESTING COMFORTABLY ON 2L NASAL CANNULA. CLEAR/ DIMINISHED BREATH SOUNDS, NO WHEEZING. SATURATION 97%. WILL CONTINUE TO MONITOR.
--- NOTE | 2022-12-07 14:42 | NUR ---
12/07/22 RD FOLLOW UP COMPLETED PLEASE REFER TO NUTRITION ASSESSMENT UNDER CARE ACTIVITY FOR ESTIMATED NUTRITIONAL NEEDS. 1. CONTINUE ON CARDIAC, CCHO, MECHANICAL SOFT GROUND DIET TOLERATED. 2. CONTINUE ON GLUCERNA TID DUE TO UNDERWEIGHT AND BMI< 18.4KG/M2. THIS WILL PROVIDE 660 CALORIES AND 30 GRAMS OF PROTEIN. 3. RD TO FOLLOW-UP 3-5 DAYS, MODERATE RISK KENNY HERRERA RD
--- NOTE | 2022-12-07 19:38 | NUR ---
gave report to the night nurse. pt sleeping no so.[email or web address]
--- NOTE | 2022-12-07 20:00 | NUR ---
RECEIVE IN BED REPOSITIONED IS INCONTINENT OF LARGE YELLOWISH BM WASHED AND MADE COMFORTABLE
[2022-12-07] MEDS: SIMVASTATIN 20 MG TAB PO SCH (21:08)
[2022-12-08] VITALS: BP 126/65
[2022-12-08 04:00] VITALS: BP 131/61
[2022-12-08] MEDS: PIPERACILLIN/TAZOBACTAM 2.25 GM in DEXTROSE 5% 50 ML IV SCH ×2 (05:33→13:50)
[2022-12-08] MEDS: LEVOTHYROXINE 0.05 MG TAB PO SCH (06:20)
[2022-12-08] MEDS: BLOOD GLUCOSE MONITORING 1 DEV DEV FS SCH ×4 (06:41→21:32)
[2022-12-08 07:02] LABS: MEAN CORPUSCULAR HEMOGLOBIN 31 pg (27-31); MEAN CORPUSCULAR HGB CONC 33 g/dL (33-37); MEAN CORPUSCULAR VOLUME 94.7 fL (80-94); PLATELET COUNT (AUTO) 169 K/uL (140-450); RED BLOOD CELL COUNT(AUTO) 3.17 MIL/uL (4.20-6.10); RED CELL DISTRIBUTION WIDTH 15.5 % (11.6-13.7); WHITE BLOOD COUNT (AUTO) 8.9 K/uL (4.8-10.8)
[2022-12-08 07:04] LABS: PHOSPHORUS 2.1 mg/dL (2.5-4.9)
--- NOTE | 2022-12-08 07:14 | NUR ---
receive the patient from the solar energy installation manager RN with shortness of breath . on 2 liters of nasal canula saturating at 98% , no complain of chest pain chest xray shows pleural effusion . on antibiotics therapy of Vancomycin , zosyn . no sign nad symptoms of respiartory distress . will continue to monitor
[2022-12-08 07:16] LABS: ANION GAP 10.6 (8-16); CARBON DIOXIDE 24.6 mmol/L (21-32); CHLORIDE 111 mmol/L (98-107); CREATININE 0.9 mg/dL (0.6-1.3); GLUCOSE 137 mg/dL (74-106); POTASSIUM 4.2 mmol/L (3.5-5.1); SODIUM SERUM 142 mmol/L (136-145); UREA NITROGEN, BLOOD 20 mg/dL (7-18)
[2022-12-08 07:52] LABS: BASOPHILS % (MANUAL) 0 % (0-2); BLASTS, MANUAL % 0 % (0-0); EOSINOPHILS % (MANUAL) 0 % (0-4); LYMPHOCYTES % (MANUAL) 7 % (20-46); METAMYELOCYTES % 0 % (0-0); MONOCYTES % (MANUAL) 4 % (5-12); MYELOCYTES % 0 % (0-0); OTHER CELLS,MANUAL % 0 (0-0); PROMYELOCYTES % 0 % (0-0)
[2022-12-08] MEDS: CLOPIDOGREL 75 MG TAB PO SCH (09:17)
[2022-12-08] MEDS: bisacodyL 10 MG SUPP RC SCH (09:17)
[2022-12-08] MEDS: ASCORBIC ACID 500 MG TAB PO SCH (09:18)
[2022-12-08] MEDS: MIRTAZAPINE 15 MG TAB PO SCH (09:18)
[2022-12-08] MEDS: AMIODARONE 200 MG TAB PO SCH ×2 (09:18→21:30)
[2022-12-08] MEDS: MEMANTINE 10 MG TAB PO SCH (09:18)
[2022-12-08] MEDS: TAMSULOSIN 0.4 MG CAP PO SCH (09:18)
[2022-12-08] MEDS: DEXTROSE 5% 1,000 ML IV SCH ×2 (09:19→22:00)
--- NOTE | 2022-12-08 09:48 | NUR ---
the daughter came and visit the patient . gave an update on the patient
--- NOTE | 2022-12-08 11:44 | NUR ---
vancomycin trough was 17.4 . Md montoya made aware . still ok to administer the vancomycin to maintain this level
[2022-12-08] MEDS: VANCOMYCIN HCL 750 MG in DEXTROSE 5% 250 ML IV SCH (11:52)
[2022-12-08] MEDS ORDERED: LEVOFLOXACIN 500 MG/D5W PREMIX 100 ML IV SCH (18:00)
--- NOTE | 2022-12-08 18:40 | NUR ---
will endorse to hourly shift manager rn for continuity of care . still with antibiotics for Pneumonia .
--- NOTE | 2022-12-08 19:00 | NUR ---
PATIENT WAS ENDORSED BY MORE RN. PATIENT WAS STABLE DURING SHIFT REPORT. RECEIVED PATIENT IN BED NON VERBAL. PATIENT IS UNABLE TO SPEAK AND DID NOT REACT TO NAME CALLED. NURSING NOTED CHEST RISING AND FALLING DURING BREATHING. NASAL CANNULA 2 LITER. NO NOTED RESPIRATORY DISTRESS AT THIS TIME. NO NOTATION IF PATIENT UNDERSTANDS CITIZEN OF [place] OR [place]. PATIENT HAS A CONDOM CATH. KEPT CLEAN AND DRY AT THIS TIME. NO S/S OF PAIN/DISCOMFORT AT THIS TIME. NURSING WILL FREQUENT THIS ROOM FOR ANTICIPATED NEEDS. SIDE RAILS UP X 3 FOR SAFETY AND ADJUSTMENT. CALL LIGHT WITHIN REACH FOR MENTAL STIMULATION. [email or web address]
[2022-12-08 20:00] VITALS: BP 130/42
--- NOTE | 2022-12-08 20:00 | NUR ---
Patient's Plan of Care was discussed and reviewed with SUSIE STEEL.
[2022-12-08] MEDS: SIMVASTATIN 20 MG TAB PO SCH (21:30)
--- NOTE | 2022-12-08 23:40 | NUR ---
PATIENT WAS ABLE TO EAT A FEW BITES OF DINNER. PATIENT IS A FEEDER AND FOOD WAS AT BEDSIDE. UPON BEGINNING OF SHIFT PATIENT WAS ASLEEP AND DID NOT RESPOND TO NAME CALLED. DURING VITAL SIGNS IT WAS DISCOVERED PATIENT COULD SPEAK AND SPOKE AND UNDERSTOOD AUSTRIAN. CALL LIGHT WITHIN REACH. NURSING WILL FREQUENT ROOM FOR ANTICIPATED NEEDS. [email or web address]
[2022-12-09] VITALS: BP 125/70
--- NOTE | 2022-12-09 00:26 | NUR ---
PATIENT IS RESTING PEACEFUL IN BED WITHOUT INCIDENT. PATIENT DID NOT EAT MUCH OF HIS DINNER. GAVE APPLE SAUCE WITH MEDICATION AND HE TOLERATED IT WELL. PATIENT UNDERSTAND AND SPEAKS PASHTO TO ASK FOR WATER DURING MEDICATION PASS. NURSING WILL CONTINUE TO MONITOR FOR ANTICIPATED NEEDS. [email or web address]
[2022-12-09] MEDS: DEXTROSE 5% 1,000 ML IV SCH (01:00)
--- NOTE | 2022-12-09 03:13 | NUR ---
PATIENT IN BED ASLEEP. NO NOTED INCIDENT AT THIS TIME. [email or web address]
[2022-12-09 04:00] VITALS: BP 127/59
--- NOTE | 2022-12-09 05:20 | NUR ---
DURING REPOSITIONING AND BED BATH NURSING NOTED A BLISTER OPENED WITH CLEAR LIQUID DRAINAGE. PATIENT DID NOT COMPLAIN OF PAIN WHEN TOUCHED OR DRESSING APPLIED. NURSING FILLED OUT WOUND PHOTOGRAPHIC. WILL ENDORSE TO AM SHIFT. [email or web address]
[2022-12-09] MEDS: LEVOTHYROXINE 0.05 MG TAB PO SCH (06:29)
[2022-12-09] MEDS: BLOOD GLUCOSE MONITORING 1 DEV DEV FS SCH ×2 (06:32→11:41)
[2022-12-09 06:57] LABS: BASOPHILS % (AUTO) 0.2 % (0.0-2.0); EOSINOPHILS # (AUTO) 0.1 K/uL (0-0.4); EOSINOPHILS % (AUTO) 0.8 % (0.0-4.0); HEMATOCRIT 27.7 % (36-52); HEMOGLOBIN 9.3 g/dL (12.0-18.0); LYMPHOCYTES # (AUTO) 1.1 K/uL (2.0-11.5); LYMPHOCYTES % (AUTO) 11.3 % (20.5-51.1); MEAN CORPUSCULAR HEMOGLOBIN 32 pg (27-31); MEAN CORPUSCULAR HGB CONC 34 g/dL (33-37); MONOCYTES # (AUTO) 0.3 K/uL (0.8-1.0); MONOCYTES % (AUTO) 2.8 % (1.7-9.3); NEUTROPHILS # (AUTO) 7.9 K/uL (1.8-7.7); NEUTROPHILS % (AUTO) 84.9 % (42.2-75.2); PLATELET COUNT (AUTO) 177 K/uL (140-450); RED BLOOD CELL COUNT(AUTO) 2.91 MIL/uL (4.20-6.10); WHITE BLOOD COUNT (AUTO) 9.3 K/uL (4.8-10.8)
--- NOTE | 2022-12-09 07:14 | NUR ---
receive the patient from the wave solder offbearer kristina Quiroz in rm 107[address] with admitting diagnosis of shortness of breath ,pneumonia . WBC 9.3 . will continue to monitor
--- NOTE | 2022-12-09 07:33 | NUR ---
ENDORSED TO MORE RN THAT PATIENT WAS STABLE, CONTINUE WITH CARE. [email or web address]
[2022-12-09 07:35] LABS: MAGNESIUM 1.7 mg/dL (1.8-2.4); PHOSPHORUS 2.1 mg/dL (2.5-4.9)
[2022-12-09 08:00] VITALS: BP 122/64
[2022-12-09 08:27] LABS: ANION GAP 11.6 (8-16); CARBON DIOXIDE 24.6 mmol/L (21-32); CHLORIDE 109 mmol/L (98-107); CREATININE 0.8 mg/dL (0.6-1.3); GLUCOSE 146 mg/dL (74-106); POTASSIUM 4.2 mmol/L (3.5-5.1); SODIUM SERUM 141 mmol/L (136-145); UREA NITROGEN, BLOOD 13 mg/dL (7-18)
[2022-12-09] MEDS: ASCORBIC ACID 500 MG TAB PO SCH (08:51)
[2022-12-09] MEDS: TAMSULOSIN 0.4 MG CAP PO SCH (08:51)
[2022-12-09] MEDS: MIRTAZAPINE 15 MG TAB PO SCH (08:52)
[2022-12-09] MEDS: MEMANTINE 10 MG TAB PO SCH (08:52)
[2022-12-09] MEDS: bisacodyL 10 MG SUPP RC SCH (08:52)
[2022-12-09] MEDS: AMIODARONE 200 MG TAB PO SCH (08:52)
[2022-12-09] MEDS: CLOPIDOGREL 75 MG TAB PO SCH (08:52)
--- NOTE | 2022-12-09 09:05 | NUR ---
WOUND CARE NOTE: STAFF REPORT LIDIA ON SKIN , SKIN ASSESSMENT DONE TO RIGHT BUTTOCK SKIN FOLD MASD PARTIAL THICKNESS SKIN LOSS 2X1X0.1CM WOUND BED 100% RED, MOIST, KIRSTIN WOUND SKIN MOIST, INTACT COVER WITH FOAM DRESSING. POC DISCUSSED WITH PRIMARY RN MORE AND CHARGE NURSE BONIFACOI. RECOMMENDATIONS: -CLEANSE RIGHT LOWER BUTTOCK WITH MILD SOAP AND WATER, PAT DRY, APPLY Z GUARD AND COVER WITH FOAM DRESSING QD AND PRN IF SOILING. -OFFLOAD SACRAL/COCCYX/BUTTOCKS WITH PILLOWS
--- NOTE | 2022-12-09 10:30 | NUR ---
bed was change to wound care mattress . will monitor sacrum for redness .
--- NOTE | 2022-12-09 11:17 | NUR ---
intravenous line was infiltrated on right arm , elevate the arm , place warm compress . change the iv site to right hand
[2022-12-09] MEDS: INSULIN LISPRO SLIDING SCALE 100 UNITS/ML VIAL SUBQ PRN (11:43)
[2022-12-09] MEDS ORDERED: AMOX-999 PO (11:58)
[2022-12-09 12:00] VITALS: BP 127/59
[2022-12-09] MEDS ORDERED: Z-GUARD PASTE TP PRN (13:05)
--- NOTE | 2022-12-09 13:15 | NUR ---
report was given to Lizette RICHARDS to go to rm 53B under the care of MD herron
--- NOTE | 2022-12-09 13:39 | NUR ---
patient was discharge in a stable condition . no complain of pain . no sign and symptoms of shortness of breath
[2022-12-09] MEDS ORDERED: LEVOFLOXACIN 250 MG/D5 PREMIX 50 ML IV SCH (18:00)
[2022-12-10] MEDS ORDERED: Z-GUARD PASTE TP SCH (14:00)
[2022-12-11] MEDS ORDERED: ALENDRONATE SODIUM 70 MG TAB PO SCH (06:30)
== END 2022-12-09 13:45 | DRG 871 ==
LOC: MED 19:02 → MMU 21:52 → MTU 12-05 07:54
DX: A41.9 Sepsis, unspecified organism (principal); J69.0 Pneumonitis due to inhalation of food and vomit; J96.01 Acute respiratory failure with hypoxia; N17.0 Acute kidney failure with tubular necrosis; E87.0 Hyperosmolality and hypernatremia; N39.0 Urinary tract infection, site not specified; G93.40 Encephalopathy, unspecified; I48.91 Unspecified atrial fibrillation; E87.8 Other disorders of electrolyte and fluid balance, not elsewhere classified; F03.90 Unspecified dementia, unspecified severity, without behavioral disturbance, psychotic disturbance, mood disturbance, and anxiety; I12.9 Hypertensive chronic kidney disease with stage 1 through stage 4 chronic kidney disease, or unspecified chronic kidney disease; E11.22 Type 2 diabetes mellitus with diabetic chronic kidney disease; N18.32 Chronic kidney disease, stage 3b; D63.1 Anemia in chronic kidney disease; Z20.822 Contact with and (suspected) exposure to COVID-19
CPT/HCPCS: 36415; 71045; 80048; 80053; 80202; 81001; 82948; 83605; 83735; 83880; 84100; 84484; 85025; 87040; 87081; 87086; 92526; 93005; 94640; 96361; 96365; 99285; J0696; J1956; J2543; J3370; J3475; J7060; Q0092

== ENCOUNTER 2022-12-19 14:24 | Inpatient (IN) | payer OTHER ==
[~2022-12-19] VITALS: Ht 165.1 cm; Wt 74.8 kg
[~2022-12-19 14:24] MED LIST changes: +ACET-2619 PO; +AMOX-999 PO; -APIX2.5 PO; +ASCO500T95 PO; +BISA-218 RC; +COLL30OI TP; +D50SYR IV; +DEXT38GE PO; +DOCU-299 PO; +FLEPED RC; +GLUC1PDS1 IM; +INSU100I47 SQ; +INSU100S5 IJ; -LANTUS SUBQ; +MAGN400S60 PO; +MEMA5TAB PO; +METF-346 PO; +MIRT-91 PO; +MULT-1328 PO; +NUTR887L11 PO; -ONDA-188 SL; +SYN.05 PO; -ZOS3.375PM IV
[2022-12-19 14:27] VITALS: BP 103/64; PULSE 82; RESP 17; TEMP 97.6; O2SAT 95
[2022-12-19] MEDS ORDERED: NACL 0.9% 1,000 ML IV SCH (15:00)
[2022-12-19 15:33] LABS: BASOPHILS % (AUTO) 0.1 % (0.0-2.0); EOSINOPHILS % (AUTO) 0.1 % (0.0-4.0); HEMATOCRIT 28.1 % (36-52); HEMOGLOBIN 9.2 g/dL (12.0-18.0); LYMPHOCYTES # (AUTO) 0.6 K/uL (2.0-11.5); LYMPHOCYTES % (AUTO) 6.8 % (20.5-51.1); MEAN CORPUSCULAR HEMOGLOBIN 31 pg (27-31); MEAN CORPUSCULAR HGB CONC 33 g/dL (33-37); MEAN CORPUSCULAR VOLUME 95.8 fL (80-94); MONOCYTES # (AUTO) 0.2 K/uL (0.8-1.0); MONOCYTES % (AUTO) 2.1 % (1.7-9.3); NEUTROPHILS % (AUTO) 90.9 % (42.2-75.2); PLATELET COUNT (AUTO) 318 K/uL (140-450); RED BLOOD CELL COUNT(AUTO) 2.93 MIL/uL (4.20-6.10); RED CELL DISTRIBUTION WIDTH 16.2 % (11.6-13.7); WHITE BLOOD COUNT (AUTO) 8.8 K/uL (4.8-10.8)
[2022-12-19] MEDS ORDERED: NACL 0.9% 1,000 ML IV ONE (15:40)
--- NOTE | 2022-12-19 15:40 | NUR ---
SMILEY SENT TO LAB
[2022-12-19 15:59] LABS: ALBUMIN 1.6 g/dL (3.4-5.0); ANION GAP 15.8 (8-16); ASPARTATE AMINOTRANSFERASE 16 U/L (15-37); CARBON DIOXIDE 24.4 mmol/L (21-32); CHLORIDE 118 mmol/L (98-107); CREATININE 1.1 mg/dL (0.6-1.3); GLUCOSE 136 mg/dL (74-106); POTASSIUM 3.2 mmol/L (3.5-5.1); SODIUM SERUM 155 mmol/L (136-145); TOTAL BILIRUBIN 0.3 mg/dL (0.0-1.0); UREA NITROGEN, BLOOD 36 mg/dL (7-18)
[2022-12-19 16:05] LABS: PROTHROMBIN TIME 10.9 secs (10.8-13.4)
[2022-12-19 16:31] LABS: APPEARANCE,URINE CLEAR (CLEAR); BILIRUBIN,URINE 1+ (NEGATIVE); BLOOD, URINE 3+ (NEGATIVE); COLOR,URINE YELLOW (YELLOW); LEUKOCYTE ESTERASE ,URINE NEGATIVE (NEGATIVE); NITRITE, URINE NEGATIVE (NEGATIVE); UGLUCOSE NEGATIVE (NEGATIVE)
[2022-12-19] MEDS ORDERED: KCL 20 MEQ IN 100 mL PREMIX 200 ML IV SCH (16:33)
[2022-12-19] MEDS ORDERED: DEXT 5% / NACL 0.45% 1,000 ML IV ONE (16:35)
[2022-12-19] MEDS ORDERED: DEXTROSE 50% 50 ML SYR IVP PRN (16:45)
[2022-12-19] MEDS ORDERED: HYDROcodone/APAP 5/325 MG 1 TAB TAB PO PRN ×2 (16:45)
[2022-12-19] MEDS ORDERED: ASPIRIN 81 MG TAB.CHEW PO ONE (16:45)
[2022-12-19] MEDS ORDERED: ONDANSETRON 4 MG/2 ML VIAL IVP PRN (16:45)
[2022-12-19] MEDS ORDERED: AMPICILLIN/SULBACTAM 1.5 GM in NACL 0.9% 50 ML IV ONE (16:45)
[2022-12-19] MEDS ORDERED: INSULIN LISPRO SLIDING SCALE 100 UNITS/ML VIAL SUBQ PRN (16:45)
--- NOTE | 2022-12-19 17:02 | NUR ---
PATIENT WAS BROUGHT IN BY [facility].
[2022-12-19] MEDS ORDERED: AMPICILLIN/SULBACTAM 1.5 GM VIAL ONE (17:19)
[2022-12-19 17:37] LABS: RBC,URINE TOO NUMEROUS TO COUN /HPF (0-5)
--- NOTE | 2022-12-19 18:02 | NUR ---
Patient will be admitted to care of SILVIA CHANDLER MD. Admited to TELEMETRY. Will go to room 121B. Belongings list completed. Report to EROS CHAN.
--- NOTE | 2022-12-19 18:30 | NUR ---
RECEIVE ER NURSE REPORT THAT 87YRS. OLD NEPALI PATIENT COME FORM [facility] FOR ABNORMAL LAB WITH HX OF ASPIRATION PNA, TYPE 2 DM, PAROXYSMAL A. FIB, ACUTE KIDNEY FAILURE, DEMENTIA, HTN, HYPOTHYROIDISM, ANEMIA, CHRONIC CONTRACTURES, BED BOUND. PATIENT ADMIT DIAGNOSIS HYPERNATREMIA, HYPERCHLOREMIA. PATIENT CONFUSE, ON 2 LITER OXYGEN VIA NC, 16FR KO IN PLACE; WOUND PRESENT AT SACRAL & L. ANKLE; CURRENT KCL INFUSING AT 20ML/HR FOR POTASSIUM FOUND 3.2 VIA L.HAND PIV SITE. VITAL WITHIN PATIENT'S BASELINE (T-P-R: 98.182-18, BP: 115/46, O2 SATURATION 99% ON 2 LITER VIA NC). MOST RECENT JSOGIZAR=[address] CHANDLER & DR. GARCIA INFORMED. RECEIVE TEXT BACK FOR "MONITOR." WILL CONTINUE TO MONITOR Addendum: 12/19/22 at 1942 by Nancy Alexandra RN ENDORSE PATIENT IN STABLE CONDITION TO PM SHIFT NURSE WHILE KCL JUST FINISH INFUSING.
[2022-12-19 18:53] VITALS: PULSE 82; RESP 15; O2SAT 97
[2022-12-19 19:06] VITALS: PULSE 89
[2022-12-19 19:07] VITALS: BP 115/46; PULSE 82; RESP 18; TEMP 98.1; O2SAT 99
--- NOTE | 2022-12-19 19:30 | NUR ---
RECEIVED REPORT FROM DAY SHIFT NURSE PATI FOR CONTINUITY OF CARE. PATIENT IS A&O X0. PATIENT IS ON 2L NC. BREATHING IS NORMAL WITH SYMMETRICAL RISE AND FALL OF CHEST. IV IS A 20G R HAND 20G LEFT HAND, AND A 22G LFA; RUNNING NS AT 100. PATIENT IS SLEEPING SEMI-FOWLERS IN BED. BED IS IN LOWEST POSITION, WHEELS LOCKED, CALL LIGHT IN PLACE. WILL CONTINUE TO OBSERVE PATIENT.
[2022-12-19 19:44] LABS: ANION GAP 16.6 (8-16); CARBON DIOXIDE 21.8 mmol/L (21-32); CHLORIDE 120 mmol/L (98-107); GLUCOSE 137 mg/dL (74-106); POTASSIUM 3.4 mmol/L (3.5-5.1); SODIUM SERUM 155 mmol/L (136-145); UREA NITROGEN, BLOOD 34 mg/dL (7-18)
[2022-12-19 20:00] VITALS: BP 124/46; PULSE 77; PULSE 88; RESP 18; TEMP 97.3; O2SAT 100
[2022-12-19 21:28] VITALS: O2SAT 98
[2022-12-19] MEDS: AMIODARONE 200 MG TAB PO SCH (21:45)
[2022-12-19] MEDS: BLOOD GLUCOSE MONITORING 1 DEV DEV FS SCH (21:46)
[2022-12-19] MEDS: SIMVASTATIN 40 MG TAB PO SCH (21:46)
[2022-12-20] VITALS (8 sets, daily range): BP systolic 101–128; BP diastolic 43–55; PULSE 78–96; RESP 18–22; TEMP 97.5–99.4; O2SAT 93–100
--- NOTE | 2022-12-20 01:00 | NUR ---
PATIENT IS SLEEPING, LYING IN SEMI-FOWLERS POSITION. BREATHING IS NORMAL WITH SYMMETRICAL RISE AND FALL OF CHEST. WILL CONTINUE TO OBSERVE PATIENT.
[2022-12-20 05:26] LABS: BASOPHILS % (AUTO) 0.1 % (0.0-2.0); EOSINOPHILS % (AUTO) 0.6 % (0.0-4.0); HEMATOCRIT 25.8 % (36-52); HEMOGLOBIN 8.6 g/dL (12.0-18.0); LYMPHOCYTES # (AUTO) 0.4 K/uL (2.0-11.5); LYMPHOCYTES % (AUTO) 4.5 % (20.5-51.1); MEAN CORPUSCULAR HEMOGLOBIN 31 pg (27-31); MEAN CORPUSCULAR HGB CONC 33 g/dL (33-37); MEAN CORPUSCULAR VOLUME 94.7 fL (80-94); MONOCYTES # (AUTO) 0.2 K/uL (0.8-1.0); MONOCYTES % (AUTO) 2.1 % (1.7-9.3); NEUTROPHILS # (AUTO) 7.3 K/uL (1.8-7.7); NEUTROPHILS % (AUTO) 92.7 % (42.2-75.2); PLATELET COUNT (AUTO) 312 K/uL (140-450); RED BLOOD CELL COUNT(AUTO) 2.72 MIL/uL (4.20-6.10); WHITE BLOOD COUNT (AUTO) 7.9 K/uL (4.8-10.8)
[2022-12-20] MEDS: LEVOTHYROXINE 0.025 MG TAB PO SCH (06:52)
[2022-12-20] MEDS: BLOOD GLUCOSE MONITORING 1 DEV DEV FS SCH ×4 (06:57→20:30)
--- NOTE | 2022-12-20 07:00 | NUR ---
ADMINISTERED MEDICATION TO PATIENT, VIA CRUSHED IN DRINKING WATER. PATIENT WAS STRUGGLING TO SWALLOW LAST NIGHT SO MEDS WERE ALSO CRUSHED FOR 2100 MEDICATION. WILL ENDORSE TO DAY SHIFT NURSE RECOMMENDATION FOR SWALLOW EVALUATION.
--- NOTE | 2022-12-20 07:11 | NUR ---
ASSUMED CONTINUITY OF CARE. INITIAL ASSESSMENT DONE. HOB ELEVATED AND KEEP COMFORTABLE ON BED. CALL LIGHT WITHIN REACH.
--- NOTE | 2022-12-20 07:50 | NUR ---
ENDORSED TO DAY SHIFT NURSE MARIA ESTHER FOR CONTINUITY OF CARE. PATIENT IS STABLE.
--- NOTE | 2022-12-20 08:00 | NUR ---
Patient's Plan of Care was discussed and reviewed with PHARMACY INFORMATICS MANAGER: MARIA ESTHER RAM
[2022-12-20 08:15] LABS: ANION GAP 14.8 (8-16); CARBON DIOXIDE 22.6 mmol/L (21-32); CHLORIDE 121 mmol/L (98-107); GLUCOSE 167 mg/dL (74-106); POTASSIUM 3.4 mmol/L (3.5-5.1); SODIUM SERUM 155 mmol/L (136-145); UREA NITROGEN, BLOOD 30 mg/dL (7-18)
[2022-12-20] MEDS: TAMSULOSIN 0.4 MG CAP PO SCH (08:58)
--- NOTE | 2022-12-20 08:58 | NUR ---
PATIENT HAS BEEN SCREENED AND CATEGORIZED HIGH NUTRITION RISK. PATIENT WILL BE SEEN WITHIN 1-2 DAYS OF ADMISSION. 12/20/22-12/21/22 FNS CONSULT/REFERRAL RECEIVED FOR DYSPHAGIA ON 12/20/22. KENNY H[address]
[2022-12-20] MEDS: CLOPIDOGREL 75 MG TAB PO SCH (08:59)
[2022-12-20] MEDS: MEMANTINE 10 MG TAB PO SCH (08:59)
[2022-12-20] MEDS: MIRTAZAPINE 15 MG TAB PO SCH (08:59)
[2022-12-20] MEDS: AMIODARONE 200 MG TAB PO SCH ×2 (08:59→20:15)
[2022-12-20] MEDS: ENOXAPARIN 40 MG/0.4 ML SYR SUBQ SCH (09:01)
[2022-12-20] MEDS: DEXTROSE 5% 1,000 ML IV SCH ×3 (09:15→23:19)
[2022-12-20] MEDS ORDERED: POTASSIUM CHLORIDE 20% 40 MEQ/15 ML UDC PO SCH (10:38)
[2022-12-20] MEDS ORDERED: MAG SULF 2000 MG/WATER PREMIX 50 ML IV SCH (11:00)
--- NOTE | 2022-12-20 13:16 | NUR ---
MIKAL SCHREIBER -PT. DAUGHTER CALLED AND GAVE CALL BACK NUMBER ([phone]). INFORMED PT. DAUGHTER -MIKAL THAT PT. IS LETHARGIC AND ABOUT TO HAVE SWALLOW EVAL. ACCORDING TO MIKAL -PT. DAUGHTER, PT. BEEN LETHARGIC FOR THE LAST 2 WEEKS. INFORMED CHARGE NURSE MICHEAL CAREY.
--- NOTE | 2022-12-20 13:24 | NUR ---
ST REPORTED THAT PT. FAILED SWALLOW EVAL. INFORMED CHARGE NURSE MICHEAL CAREY. CALLED DR. CHANDLER AND INFORMED THAT PT. FAILED SWALLOW EVAL DUE TO PT. LETHARGIC CONDITION. NO ORDER RECEIVED FROM DR. CHANDLER.
[2022-12-20] MEDS: INSULIN LANTUS 100 UNITS/ML 10 ML VIAL SUBQ SCH (13:40)
[2022-12-20] MEDS ORDERED: DEXTROSE 50% 50 ML SYR IVP PRN (13:55)
--- NOTE | 2022-12-20 14:31 | NUR ---
12/20/22 RD INITIAL ASSESSMENT COMPLETED PLEASE REFER TO NUTRITION ASSESSMENT UNDER CARE ACTIVITY FOR ESTIMATED NUTRITIONAL NEEDS. 1. CONTINUE NPO DIET TOLERATED AND PENDING SWALLOW EVALUATION, FOLLOW THOSE RECOMMENDATIONS. RD RECOMMENDS ADDING TO CCHO/CARDIAC DEPENDING ON EVALUATION AND ONCE MEDICALLY APPROPRIATE. PLEASE CONSULT RD IF TUBE FEEDING RECOMMENDATION IS NEEDED. 2. RD RECOMMENDS PROSOURCE BID FOR WOUNDS ONCE MEDICALLY APPROPRIATE WHICH WILL PROVIDE 120 CALORIES AND 30 GRAMS OF PROTEIN. 3. RD TO FOLLOW-UP 3-5 DAYS, MODERATE RISK KENNY HERRERA RD
--- NOTE | 2022-12-20 16:09 | NUR ---
DC PLANNING 87 YRS OLD MALE PATIENT WAS AD[place] [facility] [place] DX OF HYPER NATREMIA. PATIENT HAS A HX OF DM, A-FIB, ACUTE KIDNEY FAILURE, HTN, HLD, ANEMIA AND DEMENTIA. CXR SHOWED PNEUMONIA. RAPID COVID TEST NEGATIVE .CT HEAD SHOWED NO ACUTE INTRACRANIAL HEMORRHAGE. ADMINISTERED IVF AND CONTINUED HOME MEDS. CONSULTED WITH NEPHRO AND CARDIO. ORDERED SWALLOWING EVALUATION. DC PLAN TO RETURN TO [facility] WHEN STABLE. CM TO FOLLOW Addendum: 12/21/22 at 8964 by Keely Gill RN DC PLANNING: PATIENT FAILED SWALLOWING MD ROSI DISCUSSED WITH THE DAUGHTER REGARDING THE OPTION FOR G-TUBE. DOLORES SPOKE WITH DAUGHTER REGINA REN [phone] DECIDED TO TAKE HER DAD HOME WITH HOSPICE. SHE STATED SHE SPOKE WITH [facility] AND HAVE APPOINTMENT WITH [facility] ADMIN. NOTIFIED DR GREGG. DOLORES TO FOLLOW Addendum: 12/22/22 at 1231 by Keely Gill RN DC PLANNING: CM SPOKE WITH PT'S DAUGHTER MIKAL , STATED ALL HER FAMILY ARE HERE AND SPOKE WITH DR GREGG AND DECIDE TO PUT HIM ON COMFORT CARE. PATIENT IS ON COMFORT CARE AT THIS TIME. CM FOLLOW
[2022-12-20 19:08] LABS: ANION GAP 12.4 (8-16); CARBON DIOXIDE 24.1 mmol/L (21-32); CHLORIDE 120 mmol/L (98-107); CREATININE 1.1 mg/dL (0.6-1.3); GLUCOSE 144 mg/dL (74-106); SODIUM SERUM 154 mmol/L (136-145); UREA NITROGEN, BLOOD 31 mg/dL (7-18)
--- NOTE | 2022-12-20 19:08 | NUR ---
REPORT GIVEN TO SIGRID CAREY. IN STABLE CONDITION. IVF INFUSING WELL.
[2022-12-20 19:14] LABS: POTASSIUM 2.5 mmol/L (3.5-5.1)
--- NOTE | 2022-12-20 19:30 | NUR ---
RECEIVED REPORT FROM DAY SHIFT NURSE MARIA ESTHER FOR CONTINUITY OF CARE. PATIENT IS A&O X0. PATIENT IS ON 2L NC. BREATHING IS NORMAL WITH SYMMETRICAL RISE AND FALL OF CHEST. IV IS A 20G R HAND 20G LEFT HAND, AND A 22G LFA; RUNNING NS AT 100. DAY SHIFT NURSE INFORMED ME THAT PATIENT FAILED SWALLOW EVAL TODAY; HAS BEEN MADE AWARE, AND PO MEDS WEREN'T GIVEN. PATIENT IS SLEEPING SEMI-FOWLERS IN BED. BED IS IN LOWEST POSITION, WHEELS LOCKED, CALL LIGHT IN PLACE. WILL CONTINUE TO OBSERVE PATIENT.
[2022-12-20] MEDS ORDERED: KCL 20 MEQ IN 100 mL PREMIX 200 ML IV SCH (20:00)
[2022-12-20] MEDS: SIMVASTATIN 40 MG TAB PO SCH (20:15)
[2022-12-20] MEDS: INSULIN LISPRO SLIDING SCALE 100 UNITS/ML VIAL SUBQ PRN (20:32)
--- NOTE | 2022-12-20 20:45 | NUR ---
LAB CALLED WITH CRITICAL OF POTASSIUM 2.5 AT 1913. NOTIFIED HYDRAULIC MODELING ENGINEER PHYSICIAN DR. CHANDLER OF CRITICAL LAB AND PATIENT'S NPO STATUS, REQUESTED POTASSIUM IV AT 1917. RESPONDED TO GIVE HIM A FEW MINUTES. IV POTASSIUM APPEARED ON EMAR AT 1939. ADMINISTERED POTASSIUM TO PATIENT. 2100 PO MEDICATION NOT ADMINISTERED TO PATIENT DUE TO ASPIRATION CONCERN; PATIENT FAILED SWALLOW EVAL.
--- NOTE | 2022-12-20 21:53 | NUR ---
RECEIVED CRITICAL LAB TROPONIN 483.7; MESSAGED CLINICAL RESEARCH MONITOR PHYSICIAN DR. JAQUEZ AT 2113; PENDING RESPONSE.
[2022-12-21] VITALS (9 sets, daily range): BP systolic 94–108; BP diastolic 41–59; PULSE 76–94; RESP 19–22; TEMP 98.1–99.3; O2SAT 92–97
[2022-12-21] MEDS ORDERED: KCL 20 MEQ IN 100 mL PREMIX 100 ML IV SCH
--- NOTE | 2022-12-21 00:10 | NUR ---
DR. JAQUEZ RESPONDED AT 0000, STATING TO FOLLOW CARDIOLOGISTS RECOMMENDATIONS. MESSAGED DR. GARCIA; DR. GARCIA RESPONDED NO NEW ORDERS. IV STILL RUNNING, WILL CONTINUE TO OBSERVE PATIENT.
--- NOTE | 2022-12-21 04:00 | NUR ---
PATIENT HAS BEE SLEEPING THROUGHOUT THE NIGHT. BREATHING IS NORMAL WITH SYMMETRICAL RISE AND FALL OF CHEST. WILL CONTINUE TO OBSERVE PATIENT.
[2022-12-21 05:31] LABS: EOSINOPHILS % (AUTO) 0.1 % (0.0-4.0); HEMATOCRIT 21.9 % (36-52); HEMOGLOBIN 7.5 g/dL (12.0-18.0); LYMPHOCYTES # (AUTO) 0.6 K/uL (2.0-11.5); LYMPHOCYTES % (AUTO) 5.8 % (20.5-51.1); MEAN CORPUSCULAR HEMOGLOBIN 32 pg (27-31); MEAN CORPUSCULAR HGB CONC 34 g/dL (33-37); MEAN CORPUSCULAR VOLUME 92.8 fL (80-94); MONOCYTES # (AUTO) 0.2 K/uL (0.8-1.0); MONOCYTES % (AUTO) 1.6 % (1.7-9.3); NEUTROPHILS # (AUTO) 9.5 K/uL (1.8-7.7); NEUTROPHILS % (AUTO) 92.5 % (42.2-75.2); PLATELET COUNT (AUTO) 216 K/uL (140-450); RED BLOOD CELL COUNT(AUTO) 2.36 MIL/uL (4.20-6.10); RED CELL DISTRIBUTION WIDTH 15.9 % (11.6-13.7); WHITE BLOOD COUNT (AUTO) 10.3 K/uL (4.8-10.8)
[2022-12-21 05:52] LABS: CARBON DIOXIDE 24.7 mmol/L (21-32); CHLORIDE 118 mmol/L (98-107); CREATININE 1.1 mg/dL (0.6-1.3); GLUCOSE 202 mg/dL (74-106); POTASSIUM 3.7 mmol/L (3.5-5.1); SODIUM SERUM 150 mmol/L (136-145); UREA NITROGEN, BLOOD 29 mg/dL (7-18)
[2022-12-21] MEDS: INSULIN LISPRO SLIDING SCALE 100 UNITS/ML VIAL SUBQ PRN ×2 (06:17→20:05)
[2022-12-21] MEDS: BLOOD GLUCOSE MONITORING 1 DEV DEV FS SCH ×4 (06:18→20:04)
[2022-12-21] MEDS: LEVOTHYROXINE 0.025 MG TAB PO SCH (06:19)
--- NOTE | 2022-12-21 06:20 | NUR ---
0630 PO MEDICATION NOT ADMINISTERED DUE TO PATIENT UNABLE TO SWALLOW. PATIENT FAILED SWALLOW EVALUATION AND IS AT RISK FOR ASPIRATION.
--- NOTE | 2022-12-21 07:26 | NUR ---
ENDORSE TO DAY SHIFT NURSE ANGELA FOR CONTINUITY OF CARE. PATIENT IS STABLE.
--- NOTE | 2022-12-21 07:27 | NUR ---
RECEIVED REPORT FROM ECHOCARDIOGRAPHY TECH NURSE, SIGRID, FOR CONTINUITY OF CARE. PT IN BED SLEEPING AT THIS TIME. RESPIRATIONS ARE EVEN AND UNLABORED ON 3L 02 VIA NC. NO SIGNS OF DISTRESS NOTED. PT IS VERY LETHARGIC AT THIS TIME, RESPONDS TO PAINFUL STIMULI. PER ECHOCARDIOGRAPHY TECH NURSE, THIS HAS BEEN PT BASELINE FOR A FEW DAYS. PT IS NPO AT THIS TIME, DUE TO FAILED SWALLOW EVAL. SPEECH THERAPIST IS SCHEDULED TO RETURN LATER TODAY TO PERFORM ANOTHER SWALLOW EVAL. ABD IS NONTENDER, NONDISTENDED. PT IS INCONTINENT OF BOWEL AND BLADDER. PT HAS KO CATHETER IN PLACE, DRAINING DARK, MYRA URINE AT THIS TIME. PT HAS ULCER TO COCCYX. PT HAS IV TO LFA 22G, AN DL HAND 20G, WITH FLUIDS RUNNING. CALL LIGHT WITHIN REACH. ALL SAFETY MEASURES IN PLACE.
[2022-12-21] MEDS: TAMSULOSIN 0.4 MG CAP PO SCH (08:30)
--- NOTE | 2022-12-21 08:44 | NUR ---
WOUND CARE NOTE: SKIN ASSESSMENT DONE WITH THIS 87 Y/OPT. ADMITTED FROM SNF WITH ABNORMAL LABS AND PRESSURE INJURY. PASS MEDICAL HX OF TYPE 2 DIABETES, PAROXYSMAL ATRIAL FIBRILLATION, ACUTE KIDNEY FAILURE, DEMENTIA, STAGE III PRESSURE ULCER, HYPERTENSION, HYPOTHYROIDISM, ANEMIA, CHRONIC CONTRACTURES, ISCHEMIC INFARCTION OF KIDNEY. TODAY RBC 2.36, H/H 7.5/21.9, AND ALBUMIN 1.6. PT. WITH LOW ALEX SCALE AT HIGH RISK, CONTINUE TO FOLLOW PRESSURE INJURY PREVENTION INTERVENTIONS. INTEGUMENTARY: -MOISTURE ASSOCIATED SKIN DAMAGE(MASD) TO: B/L GROINS, SCROTAL, BUTTOCKS SKIN REDNESS, PEELING -PRESSURE INJURY STAGE 2, SACROCOCCYX 3X1.5CM SUPERFICIAL DEPTH, WOUND BED 100% RED GRANULATION TISSUE, MOIST, NO ODOR, WOUND EDGE FLAT, KIRSTIN-WOUND SKIN MOIST SURROUNDING NON-BLANCHABLE REDNESS INDICATED FURTHER DAMAGE -PRESSURE INJURY STAGE 1, LEFT MEDIAL ANKLE 1X2CM KIRSTIN WOUND DRY, SCALY SKIN. RECOMMENDATIONS: -APPLY THIN LAYER OF Z GUARD TO B/L GROINS, SCROTAL, BUTTOCKS BID AND PRN IF SOILING - CLEANSE SACRALCOCCYX WITH WOUND CLEANSING SOLUTION AND APPLY Z-GUARD COVER WITH FOAM DRESSING QD AND PRN IF SOILING -APPLY FOAM DRESSING TO LEFT MEDIAL ANKLE Q3 DAYS AND PRN IF SOILING -POSITIONING: TURN AND REPOSITION PATIENT Q 2H OR SOONER USE PILLOWS TO KEEP BONY PROMINENCES FROM DIRECT CONTACT WITH SURFACES USE REPOSITIONING WEDGES TO PROVIDE 30-DEGREE ANGLE FOR SIDE LYING POSITIONS OFFLOADING OR FOAM DRESSING TO ALL TUBING TO PREVENT MEDICAL DEVICES RELATED PRESSURE INJURY -RE-EVALUATING AND MANAGING INCONTINENCE MONITOR SKIN CONDITION DURING POSITION CHANGE DO NOT MASSAGE REDNESS, BONY PROMINENCES FREQUENT KIRSTIN-CARE AND PROVIDE BARRIER CREAMS PRN IF SOILING MOISTURE CONTROL BY OFFER BED STEPHENSON/URINAL /ABSORBENT PAD TO WICK AND HOLD MOISTURE KEEP SKIN DRY AND PROTECT FROM FRICTION -MANAGE FRICTION/SHEAR/MOBILITY KEEP HOB AT THE LOWEST LEVEL OF ELEVATION NO MORE THAN 30 DEGREE UNLESS OTHERWISE CONTRAINDICATED USE LIFT SHEET OR TRANSFER DEVICE TO MOVE PATIENT AND PREVENT LATERAL SHEER. PROTECT HEELS, ELBOWS BONY PROMINENCES WITH SKIN BERRIES OR FOAM DRESSING IF EXPOSED TO FRICTION OFFLOAD BILATERAL HEELS BY PLACING PILLOWS UNDER CALVES AT ALL TIMES, UNLESS OTHERWISE CONTRAINDICATED -PRESSURE REDISTRIBUTION SURFACE THERAPY KOREY ISOFLEX VILMA MATTRESS -NUTRITION: PLEASE FOLLOW RD RECOMMENDATIONS AND OFFER NUTRITION SUPPLEMENTS IF ORDERED.
[2022-12-21] MEDS: INSULIN LANTUS 100 UNITS/ML 10 ML VIAL SUBQ SCH (09:00)
[2022-12-21] MEDS: CLOPIDOGREL 75 MG TAB PO SCH (09:00)
[2022-12-21] MEDS: AMIODARONE 200 MG TAB PO SCH (09:00)
[2022-12-21] MEDS: MIRTAZAPINE 15 MG TAB PO SCH (09:00)
[2022-12-21] MEDS: MEMANTINE 10 MG TAB PO SCH (09:00)
[2022-12-21] MEDS: ENOXAPARIN 40 MG/0.4 ML SYR SUBQ SCH (09:06)
--- NOTE | 2022-12-21 10:14 | NUR ---
SPOKE WITH DR HURST REGARDING PT LANTUS ADMINISTRATION. PER , HOLD LANTUS DUE TO PT NPO STATUS AND FAILED SWALLOW EVAL. ALSO MADE AWARE THAT PO MEDS HELD.
[2022-12-21] MEDS: DEXTROSE 5% 1,000 ML IV SCH ×2 (10:54→20:44)
--- NOTE | 2022-12-21 11:15 | NUR ---
DR GREGG AT BEDSIDE, SPEAKING WITH FAMILY REGARDING PLAN OF CARE.
--- NOTE | 2022-12-21 11:44 | NUR ---
PT BLOOD GLUCOSE 120. NO INSULIN COVERAGE NEEDED PER SLIDING SCALE. PT DAUGHTER ALSO REQUESTING PT GET BREATHING TX DUE TO SECRETIONS. WILL INFORM RT.
--- NOTE | 2022-12-21 12:08 | NUR ---
nURSE CALLED FOR NT SUCTION OF PT - FAMILY AT BEDSIDE - PT TOLERATED NT SUCTION - SUCTIONED LARGE PALE YELLOW THICK.
--- NOTE | 2022-12-21 14:07 | NUR ---
DID ROUNDS ON PT. PT IN BED RESTING AT THIS TIME. RESPIRATIONS ARE EVEN AND UNLABORED. NO SIGNS OF PAIN OR DISCOMFORT AT THIS TIME.
[2022-12-21] MEDS ORDERED: Z-GUARD PASTE TP SCH (15:00)
--- NOTE | 2022-12-21 17:06 | NUR ---
NTS PT DUE TO LOW SATURATION. SUCTIONED THICK CREAM COLORED SPUTUM. SATURATION RETURNED TO THE MID 90S. PT CURRENTLY ON 5L BUBBLE NASAL CANNULA. NO DISTRESS NOTED. RESTING COMFORTABLY. WILL CONTINUE TO MONITOR.
--- NOTE | 2022-12-21 18:40 | NUR ---
NOTED PT 02 SAT AT 83% ON 5L 02 VIA NC. REPOSITIONED PT AND RAISED HEAD OF BED FURTHER. 02 SAT REMAINS THE SAME. CALLED RT. PER RT, THEY WILL COME ASSESS PT.
--- NOTE | 2022-12-21 19:15 | NUR ---
ENDORSED PT TO PROJ ENGINEER NURSEMAXIMINO, FOR CONTINUITY OF CARE. PT IS STABLE.
--- NOTE | 2022-12-21 19:16 | NUR ---
RECEIVED REPORT FROM DAY SHIFT SUSIE MILLER FOR CONTINUITY OF CARE. PT IN BED, SATTING AT 82-83%. HOB RAISED AND RT WAS CALLED. O2 AT 6L VIA NC. INITIAL ASSESSMENT DONE. REPORT GIVEN TO DUSTIN DAVIDSON. CALL LIGHT WITHIN REACH. SAFETY PRECAUTIONS IN PLACE.
--- NOTE | 2022-12-21 19:20 | NUR ---
RT AT BEDSIDE. O2 RAISED TO 15L VIA NC. O2 BACK UP TO 95%. PT CLOSELY MONITORED.
[2022-12-21] MEDS: SIMVASTATIN 40 MG TAB PO SCH (20:08)
--- NOTE | 2022-12-21 20:39 | NUR ---
RT AT BEDSIDE. O2 AT 7L SATTING AT 94%.
--- NOTE | 2022-12-21 23:52 | NUR ---
RT AT BEDSIDE. PUT PT BACK TO OXYGEN 15L SATTING AT 96%.
[2022-12-22] VITALS (23 sets, daily range): BP systolic 77–125; BP diastolic 27–50; PULSE 89–101; RESP 12–20; TEMP 97.5–99.1; O2SAT 86–100
--- NOTE | 2022-12-22 01:16 | NUR ---
PT REPOSITIONED. BREATHING EVEN AND UNLABORED SATTING AT 98%. PT CLOSELY MONITORED.
--- NOTE | 2022-12-22 01:30 | NUR ---
CALLED BY NURSE REGARDING PTS AUDIBLE COARSENESS, UPON AUSCULTATION PT BREATH SOUNDS COARSE THROUGHOUT, IN NEED OF NASAL TRACHEAL SUCTIONING AT THIS TIME, SLIGHT IMPROVEMENT IN BREATH SOUNDS POST SUCTION, PT SATURATIONS MAINTAINED AT 96% ON 15 L NASAL CANNULA
--- NOTE | 2022-12-22 03:34 | NUR ---
PT FOUND TO HAVE BP 66/39, HR 93, RR 12 AGONAL BREATHING, SATTING AT 87%. [facility]PON[facility] WAS CALLED. RT ATTACHED PT TO NON-REBREATHER AND WAS STARTED WITH 500ML BOLUS. VS IMPROVED TO 77/41, 93, 12 98%. BS 149. DAUGHTER MIKAL Pablo WAS CALLED 3X NO RESPONSE LEFT MESSAGE. DR Amaury SALDAÑA WAS INFORMED OF THE CHANGE OF CONDITIONS. RECEIVED ORDERS AND CARRIED OUT. 04:00 PT WAS TRANSFERRED TO ICU. Addendum: 12/22/22 at 0628 by Bill Keene LVN ER COMMUNICATED WITH DR SALDAÑA ABOUT PT'S CONDITION DURING [facility]ON[facility]. BOTH DRS ORDERED PT TO BE TRANSFERRED TO ICU. PLEASE SEE [facility]ON[facility] FORM ON PT'S CHART.
[2022-12-22] MEDS ORDERED: DEXTROSE 5% IV PRN (04:00)
[2022-12-22] MEDS ORDERED: NOREPINEPHRINE IV PRN (04:00)
--- NOTE | 2022-12-22 04:08 | NUR ---
[facility]ON[facility] CALLED OVERHEAD AT 0330 DURING A CODE BLUE OCCURRING IN ICU. INSTRUCTED NURSES TO PLACE PT ON NRB. I RETURNED AND FOUND PT ON SIMPLE MASK. PLACED PT ON NRB AND SPO2 INCREASED FROM 88% TO 97%. ER MD LICONA RESPONDED, HE CONSULTED WITH THE ATTENDING MD AND DECIDED AGAINST INTUBATING. PT REMAINS ON 15L NRB 100% FIO2, SPO2 99%. WILL CONT TO MONITOR.
[2022-12-22] MEDS ORDERED: NOREPINEPHRINE 4 MG/4 ML VIAL IV ONE (04:10)
--- NOTE | 2022-12-22 04:10 | NUR ---
RECEIVED PT FROM TELEMETRY UNIT S/P [facility].PT PLACED IN ICU2, MONITORS ATTACHED SR NOTED ON MONITOR.W/PERIPHERAL IV TO LT F/A G22,SALINE LOCK AND RT WRIST G20 INTACT INFUSING NS BOLUS PER VIPUL FREIRE MD. W/KO CATHETER TO BSD DRAINING TEA COLORED URINE,SMALL AMT.PT W/CLOSED WOUND TO SACRUM, D/I DRESSING.ALL EXTREMITIES W/GENERALIZED WEAKNESS.FLACC 0.FALL PRECAUTION IN PLACE.
--- NOTE | 2022-12-22 04:30 | NUR ---
PTS BP 81/46, LEVOPHED DRIP STARTED ORDERED BY DR LICONA.WILL CONTINUE TO CLOSELY MONITOR PT. PT RESPONDS TO PAINFUL STIMULI BY GRIMACING.
[2022-12-22] MEDS ORDERED: NOREPINEPHRINE 4 MG in DEXTROSE 5% 250 ML IV PRN (04:40)
--- NOTE | 2022-12-22 04:43 | NUR ---
PHONE CALL TO PTS DAUGHTER MIKAL SCHREIBER ([phone]), NO ANSWER,LEFT MESSAGE TO CALL BACK PER[employer] FRUIT INSPECTOR.AWAITING REPLY
[2022-12-22] MEDS: DEXTROSE 5% 1,000 ML IV SCH (05:00)
[2022-12-22 05:27] LABS: BASOPHILS % (AUTO) 0.1 % (0.0-2.0); EOSINOPHILS % (AUTO) 0.8 % (0.0-4.0); HEMATOCRIT 23.3 % (36-52); HEMOGLOBIN 7.8 g/dL (12.0-18.0); LYMPHOCYTES # (AUTO) 0.5 K/uL (2.0-11.5); LYMPHOCYTES % (AUTO) 9.6 % (20.5-51.1); MEAN CORPUSCULAR HEMOGLOBIN 31 pg (27-31); MEAN CORPUSCULAR HGB CONC 33 g/dL (33-37); MEAN CORPUSCULAR VOLUME 92.9 fL (80-94); MONOCYTES % (AUTO) 0.9 % (1.7-9.3); NEUTROPHILS # (AUTO) 4.9 K/uL (1.8-7.7); NEUTROPHILS % (AUTO) 88.6 % (42.2-75.2); PLATELET COUNT (AUTO) 128 K/uL (140-450); RED BLOOD CELL COUNT(AUTO) 2.51 MIL/uL (4.20-6.10); RED CELL DISTRIBUTION WIDTH 16.2 % (11.6-13.7); WHITE BLOOD COUNT (AUTO) 5.5 K/uL (4.8-10.8)
[2022-12-22 05:47] LABS: ANION GAP 13.2 (8-16); CARBON DIOXIDE 20.7 mmol/L (21-32); CHLORIDE 114 mmol/L (98-107); CREATININE 1.3 mg/dL (0.6-1.3); GLUCOSE 157 mg/dL (74-106); POTASSIUM 3.9 mmol/L (3.5-5.1); SODIUM SERUM 144 mmol/L (136-145); UREA NITROGEN, BLOOD 31 mg/dL (7-18)
--- NOTE | 2022-12-22 06:10 | NUR ---
PHONE CALL FROM PTS DAUGHTER MIKAL SCHREIBER, UPDATED ON PTSPRESENT CONDITION.MADE AWARE PT WAS TRANSFERRED TO ICU UNIT S/P [facility]PON[facility], QUESTIONS ANSWERED.PER MIKAL SCHREIBER, SHE WILL BE HERE TODAY.
[2022-12-22] MEDS: LEVOTHYROXINE 0.025 MG TAB PO SCH (06:12)
[2022-12-22] MEDS: BLOOD GLUCOSE MONITORING 1 DEV DEV FS SCH (06:43)
--- NOTE | 2022-12-22 07:15 | NUR ---
report given to justice for continuity of care.made aware to call daughter if md does the rounds
--- NOTE | 2022-12-22 07:20 | NUR ---
Received report from student success counselor nurse DUSTIN Busby. Patient has Right 20G line infusing Propofol, Fentanyl, Norepinephrine with dressing dry and intact with no ecchymosis to insertion site. Right AC 20G infusing 5% Dextrose and Levophed dressing is dry and intact with no redness or infiltration noted. L 22G saline locked. Lung are diminished but present in all lobes to auscultation. Abdomen soft with NPO. Haines catheter in place draining to gravity with no dependent loops. Patient has sacral ulcer. Patient on bilateral soft wrist restraints for safety. HOB at 30 degrees to prevent aspiration. Bed locked and in lowest position. No acute distress or SOB noted.
--- NOTE | 2022-12-22 07:43 | NUR ---
@0735 RECEIVED PT ON 15L NRM SATING 98%. RT TRIED TO TITRATE PT TO A HF BUBBLER OF 10L PT WAS SATING 90% QUICKLY DECREASED TO 85% PT IS BREATHING THROUGH HIS MOUTH AND DID NOT TOLERATE HF BUBBLER. PT IS BACK ON NRM 15L SATING 98% . WILL CONTINUE TO MONITOR. RN AWARE.
--- NOTE | 2022-12-22 08:24 | NUR ---
patient not on soft bilateral wrist restraints.
--- NOTE | 2022-12-22 08:25 | NUR ---
patient doesn't have sacral ulcer has foam prophylaxis on right medial ankle.
[2022-12-22] MEDS: TAMSULOSIN 0.4 MG CAP PO SCH (08:30)
--- NOTE | 2022-12-22 08:45 | NUR ---
Patients daughter aLndon spoke to MD Molina regarding the patients code status. Daughter Landon agreed to change her father from Full Code to DNR. Polst was sign by daughter and MD. Will continue to follow plan of care.
[2022-12-22] MEDS: INSULIN LANTUS 100 UNITS/ML 10 ML VIAL SUBQ SCH (09:00)
[2022-12-22] MEDS: MEMANTINE 10 MG TAB PO SCH (09:00)
[2022-12-22] MEDS ORDERED: AMIODARONE 200 MG TAB PO SCH (09:00)
[2022-12-22] MEDS: CLOPIDOGREL 75 MG TAB PO SCH (09:00)
[2022-12-22] MEDS: MIRTAZAPINE 15 MG TAB PO SCH (09:00)
--- NOTE | 2022-12-22 09:32 | NUR ---
Contacted MD Molina regarding patients PO medication. Per MD orders hold on all PO meds and insulin since patient has been NPO. Only administer Lovenox. Will continue to follow plan of care.
[2022-12-22] MEDS: ENOXAPARIN 40 MG/0.4 ML SYR SUBQ SCH (09:54)
--- NOTE | 2022-12-22 10:17 | NUR ---
Dr. Molina rounded at patients bedside spoke with patients daughter Sinae and patients about patients condition. Family agreed to start patient on Morphine Drip and Nasal Canula. Patient is too critical to transfer him to the families chosen hospice company. Family agreed to leave him in ICU. Will continue plan of care.
[2022-12-22] MEDS ORDERED: ALPRAZolam 0.25 MG TAB PO PRN (10:30)
[2022-12-22] MEDS ORDERED: ONDANSETRON 4 MG/2 ML VIAL IVP PRN (10:30)
[2022-12-22] MEDS ORDERED: LORazepam 2 MG/ML VIAL IVP PRN (10:30)
[2022-12-22] MEDS ORDERED: HYDROmorphone PFS 2 MG/ML SYR IVP PRN (10:30)
[2022-12-22] MEDS ORDERED: ACETAMINOPHEN 650 MG SUPP RC PRN (10:30)
[2022-12-22] MEDS ORDERED: DOCUSATE SODIUM 100 MG GELCAP PO PRN (10:30)
[2022-12-22] MEDS ORDERED: SCOPOLAMINE 1.5 MG/72 HR PATCH TD PRN (10:30)
[2022-12-22] MEDS ORDERED: bisacodyL 10 MG SUPP RC PRN (10:30)
[2022-12-22] MEDS ORDERED: MORPHINE SULFATE 50 MG in NACL 0.9% 45 ML IV PRN (10:30)
[2022-12-22] MEDS ORDERED: SODIUM PHOSPHATE 118 ML ENEM RC PRN (10:30)
[2022-12-22] MEDS ORDERED: ACETAMINOPHEN 325 MG TAB PO PRN (10:30)
[2022-12-22] MEDS ORDERED: LORazepam 1 MG TAB PO PRN (10:30)
[2022-12-22] MEDS ORDERED: DOCUSATE SODIUM 250 MG GELCAP PO PRN (10:30)
[2022-12-22] MEDS ORDERED: HYOSCYAMINE 0.125 MG TAB SL PRN (10:30)
[2022-12-22] MEDS ORDERED: MORPHINE SULFATE 4 MG/ML SYR IVP PRN (10:30)
[2022-12-22] MEDS ORDERED: POLYETHYLENE GLYCOL 17 GM/PKT PO PRN (10:30)
--- NOTE | 2022-12-22 12:01 | NUR ---
Patients daughter Sinlisa asked to hold off on the Morphine Drip until the rest of the family members come to visit patient. Will continue to follow plan of care.
--- NOTE | 2022-12-22 13:43 | NUR ---
12/22/22 RD FOLLOW UP COMPLETED PLEASE REFER TO NUTRITION ASSESSMENT UNDER CARE ACTIVITY FOR ESTIMATED NUTRITIONAL NEEDS. 1. CONTINUE NPO DIET TOLERATED. PLEASE SEND CONSULT TO RD IF ANY NUTRITION HELP IS NEEDED MOVING FORWARD. 2. RD TO FOLLOW-UP 2-3 DAYS, HIGH RISK KENNY HERRERA RD
--- NOTE | 2022-12-22 13:50 | NUR ---
Started patient on Morphine Drip at 2mg/hr verified by charge nurse Kassidy. Will continue to follow plan of care.
--- NOTE | 2022-12-22 14:18 | NUR ---
TRANSFERRED PT TO ROOM 113 VIA 15L NON REBREATHER. PT CURRENTLY ON 15L NON REBREATHER VIA O2 IN ROOM.
--- NOTE | 2022-12-22 14:20 | NUR ---
Transferred patient to telemetry unit room 113 per family request. Endorsed report to telemetry nurse Jose Angel RN for continuity of care.
--- NOTE | 2022-12-22 14:21 | NUR ---
received patient from icu bed 2. icu nurse endorsed patient. vital signs taken.
--- NOTE | 2022-12-22 14:40 | NUR ---
patient shows asystole on monitor. no lung sounds heard. no pulse auscultated and palpated. Called ED and informed MD.
--- NOTE | 2022-12-22 16:40 | NUR ---
[facility] [employer] [facility] called. [facility] [employer] called. mortuary package pick up arranged. post mortem care done
== END 2022-12-22 17:25 | DRG 177 ==
LOC: MED 14:24 → MTU 16:44 → MIC 12-22 04:00 → MTU 12-22 14:15
PROVIDERS: ADMIT Internal Medicine; ATTEND Internal Medicine
DX: J69.0 Pneumonitis due to inhalation of food and vomit (principal); E43 Unspecified severe protein-calorie malnutrition; G93.41 Metabolic encephalopathy; E87.0 Hyperosmolality and hypernatremia; G91.9 Hydrocephalus, unspecified; F03.90 Unspecified dementia, unspecified severity, without behavioral disturbance, psychotic disturbance, mood disturbance, and anxiety; E03.9 Hypothyroidism, unspecified; Z20.822 Contact with and (suspected) exposure to COVID-19; I10 Essential (primary) hypertension; E86.1 Hypovolemia; E11.9 Type 2 diabetes mellitus without complications; I48.0 Paroxysmal atrial fibrillation; D64.9 Anemia, unspecified; Z66 Do not resuscitate; Z74.01 Bed confinement status; Z68.27 Body mass index [BMI] 27.0-27.9, adult
CPT/HCPCS: 36415; 70450; 71045; 80048; 80053; 81001; 82550; 82553; 82948; 83605; 83735; 83880; 84443; 84484; 85025; 85610; 85730; 87040; 87081; 87086; 92526; 93005; 96365; 96368; 99285; J0295; J1650; J1815; J2270; J3475; J3480; J3490